=== PATIENT | female | born 1970 | race Caucasian/White ===

== ENCOUNTER 2023-05-28 11:42 | Outpatient (CLI) | payer OTHER, SELFPAY ==
--- NOTE | ~2023-05-28 | XR_ITS ---
EXAMINATION: XR abdomen/kub 1V DATE: 05/28/2023 12:00 INDICATION: Kidney stones. TECHNIQUE: A supine view of the abdomen on 2 radiographs was obtained. COMPARISON: None. FINDINGS: There are no dilated loops of bowel. There are surgical clips in right abdomen. Small calci fications in left pelvis are likely phleboliths. IMPRESSION: 1. No visible urolithiasis. Reviewed, dictated and finalized at location A. IMPRESSION: 1. No visible urolithiasis.
== END 2023-05-28 11:43 | disposition home or self-care (01) ==
LOC: ANHIMG 11:49
PROVIDERS: PCP Family Medicine; Visit Provider Nurse Practitioner
DX: N20.0 Calculus of kidney (principal)
CPT/HCPCS: 74018

== ENCOUNTER 2025-04-25 09:54 | Outpatient (CLI) | payer OTHER, SELFPAY ==
--- NOTE | ~2025-04-25 | XR_ITS ---
XR abdomen/kub 1V 04/25/2025 10:20 Indication: Kidney stones Procedure: KUB Comparison: No prior studies for comparison. Findings: Bowel gas pattern nonobstructive. Moderate colonic fecal loading. There are clustered calci fications right upper abdomen which are nonspecific, possibly costal cartilage calcification. There a re pelvic phleboliths. No definite renal stones. No stones are identified in the expected course of t he ureters. Impression: 1: No acute abdominal abnormality. Reviewed, dictated and finalized at location A. Impression: 1: No acute abdominal abnormality.
--- OUTSIDE RECORDS SUMMARY | 2025-04-25 10:17 | XMS_ITS | Clinical Summary ---
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 Name Role Phone Unavailable Primary Care Provider Unavailabl e Social History Tobacco Use Types Packs/Day Years Used Date Smoking Tobacco: Never Assessed Comments Unknown Sex and Gender Information Value Date Recorded Sex Assigned at Not on file Legal Sex Female 8:41 PM [employer] Gender Identity Not on file Sexual Orientation Not on file Plan of Treatment Health Maintenance Due Date Last Done Comments Hepatitis C Virus (HCV) Screening 1971 Hepatitis B Immunization (1 of 3 - 19+ 3-dose series) 1990 Pap Smear 02/08/1992 Cervical Cancer Screening (CCS) 2001 HPV/Cotest 2001 Colonoscopy 02/08/2016 Colorectal Cancer Screening 02/08/2016 Cologuard 2021 Immunochemical Fecal Occult Blood 2021 Mammogram 2021 Pneumococcal Immunization (5 0+ years) (1 of 1 - PCV) 2021 Zoster Immunization (1 of 2) 2021 Influenza Immunization (#1) 2024 SARS-COV-2 Immunization ( season) 2024 Respiratory Syncytial Virus (RSV) Immunization (Adult) (1 - 1-dose 75+ series) 2046 DTaP/Tdap/Td Immunization Discontinued 10/29/2018 TdaP Immunization Completed 10/29/2018 Meningococcal Immunization (ACWY) Aged Out No longer eligible based on patient's age to complete this topic Pneumococcal Immunization Combined Aged Out No longer eligible based on patient's age to complete this topic Rotavirus Immunization Aged Out No lo nger eligible based on patient's age to complete this topic
--- OUTSIDE RECORDS SUMMARY | 2025-04-25 10:18 | XMS_ITS | Continuity of Care Document ---
Author Name [facility] Organization [facility] Care Team Providers Care Occupational Therapy Director Name Role Phone [facility] Unavailable Unavailable Problems Combined list of problems from Department of Defense and Veterans Affairs facilities. It does not include entries that were removed or entered in error. 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 DoD REFRACTIVE ERROR - HYPERMETROPIA Active Condition DoD PRESBYOPIA Active Condition DoD visit for: single organ system exam eyes Inactive Condition DoD eye symptoms Inactive Condition DoD ROUTINE GYNECOLOGICAL EXAM Inactive Condition DoD visit for: administrative purpose Inactive Condition DoD diffuse joint pains (arthralgias) Inactive Condition DoD UTERINE LEIOMYOMA INTRALIGAMENTOUS Active Condition DoD UPPER RESPIRATORY INFECTION Inactive Condition DoD STRESS INCONTINENCE Inactive Condition D oD OTITIS MEDIA LEFT EAR Inactive Condition DoD MIGRAINE HEADACHE Active Condition DoD ROUTINE GYNECOLOGICAL EXAM WITH CERVICAL PAP SMEAR Inactive Condition DoD MENORRHAGIA Active Condition DoD HEADACHE SYNDROMES Active Condition DoD ALLERGIC RHINITIS - ANIMALS Active Condition DoD Patient Education - Proper Use Of Medications Active Condition DoD cough Active Condition DoD itching (pruritus) Active Condition DoD allergy to molds Active Condition DoD ALLERGIC RHINITIS - POLLEN Active Condition DoD ADVERSE FOOD REACTION (NOT ANAPHYLACTIC) Active Condition DoD APHTHOUS ULCER STOMATITIS HERPETIFORMIS Active Condition DoD CANDIDIASIS ORAL THRUSH Inactive Condition DoD UTERINE NEOPLASM, BENIGN - LEIOMYOMA Active Condition DoD visit for: screening exam Inactive Condition DoD DYSMENORRHEA Active Condition DoD lethargy Active Condition DoD TENSION-TYPE HEADACHE Active Condition DoD ACTINIC KERATOSIS Active Condition ac tinic keratotic lesion in inner forearm of left Did cryotherapy 2 passes x 20 seconds - pt tolerated well explained that lesion would become erythematous and then peel DoD ANXIETY DISORDER NOS Active Condition Controlled on present dose of once a day at night. Pt will call if once a day is no longer effective. DoD ALLERGIC RHINITIS Active Condition Pt also doing a lot of sneezing. Children's Sudafed prn. DoD HYPERHIDROSIS Active Condition Contro lled w/ 2 times a week use. DoD Hyperhidrosis Active Condition Improv ed w/ Drysol. DoD ADVERSE EFFECT OF DRUG THERAPY Inactive Condition Effexor-XR. DoD visit for: screening exam malignant neoplasm breast Inactive Condition DoD visit for: screening exam for malignant neoplasm cervix Inactive Condition DoD Serum Total Cholesterol Was Elevated Active Condition DoD ESOPHAGEAL REFLUX Active Condition Di et controlled. DoD joint stiffness finger(s) Active Condition R/O RA or other abnormalities. Exam of hands was wnl. DoD LUMBAGO Active Condition Probably muscular. Pt to con't stretching exercises. Motrin &/or Tylenol. DoD Preventive Medicine New Patient Evaluation Adult 18-39 Inactive Condition Exam wnl. Occ h/as are possibly sinus related. No h/a now. Recommended routine eye exam since it has been almost 2 yrs since pt's last eye exam. No med record available for review. DoD Medications Combined list of outpatient medications from Department of Defense and Veterans Affairs facilities.Medications provided include 1) outpatient medications from the last 15 months, and 2) patient-reported medications. Medication Details Route Status Patient Instructions Prescription Expires Prescription Number Last Dispense Date Ordering Provider Order Date Order Qty Source ESTRADIOL (ESTRADIOL) , .0375MG/24, PATCH TDSW, TRANSDERM, MYLAN, [address] Cance[place] d [id number] : 2023 0 Pharmac y Data Transac tion Service Facilit y Allergies, Adverse Reactions, Alerts Combined list of allergies from Department of Defense and Veterans Affairs facilities. It does not include entries that were removed or entered in error. Substance Category Reaction Severity Reaction type Status Date Reported Comments Source VICODIN Drug allergy (disorder) active 04/22/2018 [facility] Immunizations Combined list of available immunizations from the Department of Defense and Veterans Affairs facilities. Immunization Series Date Given Administered By Site Reaction Lot Number CVX Code Drug Switch Crew Supervisor Status Comments Source tetanus toxoid, reduced diphtheria toxoid, and acellular pertu is vaccine, adsorbed 1 2013 Unknown, Provider [id number] Sanofi Pasteur (PMC) complet ed tetanus toxoid, reduced diphtheri a toxoid, and acellular pertussis vaccine, adsorbed DoD typhoid Vi capsular polysaccharid e vaccine 0 2001 [id number] [facility] ([facility]) complet ed typhoid Vi capsular polysacch aride vaccine DoD tuberculin skin test; purified protein derivative solution, intradermal 1 2001 Unknown, Provider [id number] [facility] Pasteur ([facility]) complet ed tuberculi n skin test; purified protein derivativ e solution, intraderm al DoD influenza virus vaccine, whole virus 0 2001 [id number] 16 [facility] ([facility]) complet ed influenza virus vaccine, whole virus DoD tuberculin skin test; purified protein derivative solution, intradermal 1 2000 Unknown, Provider [id number] 96 [facility] ([facility]) complet ed tuberculi n skin test; purified protein derivativ e solution, intraderm al DoD influenza virus vaccine, whole virus 0 2000 [id number] () complet ed influenza virus vaccine, whole virus DoD yellow fever vaccine 0 1999 [id number] [facility] complet ed yellow fever vaccine DoD influenza virus vaccine, whole virus 0 1999 [id number] 16 [facility] ([facility]) complet ed influenza virus vaccine, whole virus DoD tuberculin skin test; purified protein derivative solution, intradermal 1 1999 Unknown, Provider 96 () complet ed tuberculi n skin test; purified protein derivativ e solution, intraderm al DoD typhoid vaccine, parenteral, other than acetone-kille d, dried 0 1999 [id number] [facility] ([facility]) complet ed typhoid vaccine, parentera l, other than acetone-k illed, dried DoD hepatitis B vaccine, adult dosage 3 1999 [id number] 43 Merck (MSD) complet ed hepatitis B vaccine, adult dosage DoD hepatitis B vaccine, adult dosage 2 1999 [id number] 43 Merck (MSD) complet ed hepatitis B vaccine, adult dosage DoD influenza virus vaccine, whole virus 0 1998 [id number] 16 [place] (CON) complet ed influenza virus vaccine, whole virus DoD hepatitis A vaccine, adult dosage [id number] [place] [address] ([facility]) complet ed hepatitis A vaccine, adult dosage DoD trivalent poliovirus vaccine, live, oral 0 1997 [id number] 02 Ledbertha (LED) comple t ed trivalent polioviru s vaccine, live, oral DoD measles, mumps and rubella virus vaccine 0 1997 [id number] 03 Merck (MSD) complet ed measles, mumps and rubella virus vaccine DoD hepatitis A vaccine, adult dosage 1 1997 [id number] 52 Merck (MSD) complet ed hepatitis A vaccine, adult dosage DoD tetanus and diphtheria toxoids, adsorbed, preservative free, for adult use (2 Lf of tetanus toxoid and 2 Lf of diphtheria toxoid) 0 1997 [id number] 09 [place] (CON) complet ed tetanus and diphtheri a toxoids, adsorbed, preservat morris free, for adult use (2 Lf of tetanus toxoid and 2 Lf of diphtheri a toxoid) DoD influenza virus vaccine, whole virus 0 [id number] 16 [place] (WAL) complet ed influenza virus vaccine, whole virus DoD meningococcal polysaccharid e vaccine (MPSV4) 0 [id number] 32 [place] (CON) complet ed meningoco ccal polysacch aride vaccine (MPSV4) DoD tuberculin skin test; purified protein derivative solution, intradermal 1 1997 Unknown, Provider 96 () complet ed tuberculi n skin test; purified protein derivativ e solution, intraderm al DoD Encounters Combined list of: 1) Encounters from Department of Veterans Affairs facilities going backup to the last 18 months, not all VA inpatient encounters are included; 2) Encounters from the Department of Defense facilities going backup to 280 months. Location Location Details Encounter Type Encounter Number Reason For Visit Attending Provider ADM Date DC Date Status Disposition Source [facility]) OUTPATIENT [id number] ALEYDA Waller W 09/05 Released w/o Limitations [facility]) [facility]) TELE CONSULT [id number] ALEYDA Sen W 10/05 [facility]) [facility]) OUTPATIENT [id number] ALEYDA BARONE W 10/23 Released w/o Limitations [facility] [place] [facility] [place] [facility]) OUTPATIENT [id number] EXCESSI VE SWEATIN G ALEYDA MERRITT W 02/07 Released w/o Limitations [facility] [place] [facility]) [facility] [place] [facility] OUTPATIENT [id number] med ALEYDA Del Cid W 02/26 Released w/o Limitations [facility] [place] [facility]) [facility] [place] [facility]) OUTPATIENT [id number] f/u med ALEYDA Del Cid W 03/24 Released w/o Limitations [facility] [place] [facility] [place] [facility] OUTPATIENT [id number] f/u test results ALEYDA MERRITT W 04/07 Released w/o Limitations [facility] [place] [facility] [place] [facility] OUTPATIENT [id number] f/u on meds ALEYDA MERRITT W 05/06 Released w/o Limitations [facility] [place] [facility]) [facility] [place] [facility]) OUTPATIENT [id number] r/o sinus infecti on ALEYDA MERRITT W 07/31 Released w/o Limitations [facility] [place] [facility]) [facility] [place] [facility] OUTPATIENT [id number] PT CONCERN ED ABOUT SKY LEPE 03/13 Released w/o Limitations [facility] [place] [facility]) [facility] [place] [facility] OUTPATIENT [id number] tick bite GALEN WHITTAKER 05/05 Released w/o Limitations [facility] [employer] [facility] [place] DIRECT TO MTF FROM OTHER THAN ER OR [facility] [id number] GLENN SOLIS 12/07 DISCHARGED HOME [facility] [place] [facility] [place] [facility] OUTPATIENT [id number] hx of uterine fibriod s and request testing for allergi es ALEYDA MERRITT W 05/15 Released w/o Limitations [facility]([employer] [facility]) [facility] [facility]) OUTPATIENT [id number] pap ALEYDA MERRITT W 06/05 Released w/o Limitations [facility]([employer] [facility]) [facility] [facility]) TELE CONSULT [id number] Pelvic u/s result ALEYDA MERRITT W 06/28 [facility]([employer] [facility]) [facility]) OUTPATIENT [id number] visit for: screeni ng exam for allergi es and food sensiti vities SAUL SCHNEIDERHAMMAD 07/03 Released w/o Limitations [facility]) [facility]) OUTPATIENT [id number] visit for :screen ing exam for allerig ies and food sensiti vities SAUL SCHNEIDERHAMMAD 07/09 Released w/o Limitations [facility]) [facility] Managemen t [facility]) OUTPATIENT [id number] med YANG Turner 07/09 Released w/o Limitations [facility]a lt Managem ent [facility]) [facility]) OUTPATIENT [id number] f/u SAUL SCHNEIDERHAMMAD 07/26 Released w/o Limitations [facility]) [facility]([employer]ant [employer] [place]) OUTPATIENT [id number] UTERINE NEOPLAS M, BENIGN- LEIOMYO MA, dysmeno rrhea POONAM MENDEZ W 02/11 Released w/o Limitations [facility]([employer] [place]) [facility]) OUTPATIENT [id number] PAP SMEAR; 1971 ALEYDA MERRITT W 09/26 Released w/o Limitations [facility]([employer] to[facility]) [facility]) OUTPATIENT [id number] SINUS/E AR INFECTI ON ALEYDA MERRITT W 02/18 Released w/o Limitations [facility]([employer] [facility]) [facility]([place] [facility]) OUTPATIENT [id number] F/U Ear ALEYDA MERRITT W 03/12 Released w/o Limitations [facility]([employer] [facility]) [facility]([place] [facility]) OUTPATIENT [id number] COUGH ALEYDA MERRITT W 03/24 Sick at Home/Quarter s [facility]([employer] [facility]) [facility]) OUTPATIENT [id number] new patient YANG MCCULLOUGH 10/27 Released w/o Limitations [facility]) [facility]([employer] [place]) TELE CONSULT [id number] Appt RITA DAVILA L 10/27 [facility]([employer] [place]) [facility]) OUTPATIENT [id number] F/U FOR BLOOD WORK/LA ST SEEN [id number] YANG MCCULLOUGH G 12/01 Released w/o Limitations [facility]) [facility]([employer] [place]) OUTPATIENT [id number] UTERINE LEIOMYO [facility] 12/[facility] Released w/o Limitations [facility]([employer] [place]) [facility]([employer] [place]) TELE CONSULT [id number] lab RITA DAVILA L 12/03 [facility]([employer] [place]) [facility]) OUTPATIENT [id number] SINUS INFECTI ON JOHNNY FOSTER P 01/16 Released w/o Limitations [facility]) [facility](Optomet ry [place]) OUTPATIENT [id number] eye symptom s GLENN JUDGE F 01/25 Released w/o Limitations [facility](Opt ometry [place]) [facility]([employer] [place]) OUTPATIENT [id number] f/u NIKO ALFIE Nash 03/29 Released w/o Limitations [facility]([employer] [place]) [facility]) OUTPATIENT [id number] RASH ON RIGHT EAR, AND AND RIGHT SHOULDE R PAIN YANG MCCULLOUGH 05/27 Released w/o Limitations [facility]) [facility](Phy Ther [facility]) OUTPATIENT [id number] joint pain, localiz ed in the right shoulde r GALE MASON 06/08 Released w/o Limitations [facility](Phy Ther [facility]) [facility]([employer] [place]) TELE CONSULT [id number] CA 125 level elevate d RITA DAVILA 06/21 [facility]([employer] [place]) [facility]([employer] [place]) OUTPATIENT [id number] f/u ca 125 elevate d ALFIE POPE Ricky 06/21 Released w/o Limitations [facility]([employer] [place]) [facility]([employer] [place]) OUTPATIENT [id number] postop Jun lap ALFIE POPE 07/30 Released w/o Limitations [facility]([employer] [place]) [facility]) OUTPATIENT [id number] UPPER ABDOMIN AL DISCOMF ORT X 3 DAYS YANG MCCULLOUGH 10/17 Released w/o Limitations [facility]) [facility]) TELE CONSULT [id number] YANG MCCULLOUGH 10/18 [facility]) [facility]) TELE CONSULT [id number] YANG MCCULLOUGH 11/01 [facility] Ronny ANNE ([facility] [facility] Sreedhar Chang[place] TELE CONSULT [id number] Notes Entered by: ANA COLLADO 20 Jan 2014 1128 ------- ------- ------- ------- -- Lab request before Jan appt Mary [phone] AYSHA LUGO 01/[address] [place] [address] Ronny ANNE [facility] [facility] [place] [address] [place] [address] Ronny PRINCEHailey [facility]Sco tt [facility] [place] [facility] [place]) OUTPATIENT [id number] Anemia/ mole eval AYSHA LUGO 01/26 Released w/o Limitations [address] [place] [address] Ronny PRINCEHailey [facility]S cott [facility] [place] [address] [place] [address] Ronny PRINCEHailey [facility]Sco tt [facility] [place] [facility] [place]) TELE CONSULT [id number] Notes Entered by: DONNA RANGEL 31 Jan 2014 0759 ------- ------- ------- ------- -- Heavy bleedin g and clottin g on period/ Mary / DIOGENES WHITNEY 01/[address] [place] [address] Ronny PRINCEHailey [facility]S [place] [facility] [place] [address] [place] [address] Ronny PRINCEHailey [facility]Sco tt [facility] [place]) TELE CONSULT [id number] Notes Entered by: Marcelle ROSENBERG 31 Jan 2014 1357 ------- ------- ------- ------- -- ER FU/Edwin kwok/[phone] TENZIN TIRADO 01/[address] [place] [address] Ronny PRINCEHailey ([facility] [facility] [place]) [address] [place] [address] Ronny PRINCEHailey [facility]Sco tt [facility] [place]) OUTPATIENT [id number] post st E er visit, heavy vag bleedin g/ abd MARTY lEam 02/01 Released w/o Limitations [address] [place] [address] Ronny PRINCEHailey [facility])(S cott [facility] F[place] Res [place]) [address] [place] [address] Ronny PRINCEHailey [facility])(Sco [facility]) TELE CONSULT [id number] Notes Entered by: ANN MARIO 03 Feb 2014 1142 ------- ------- ------- ------- -- Hero claudio to the ER/Edwin kwok/[phone] MARTY LLOYD 02/[address] [place] [address] Group Ronny ANNE ([facility]S cott [facility]) [facility]([employer] [facility]) OUTPATIENT [id number] Notes Entered by: ANKUSH WILCOX 03 Feb 2014 1838 ------- ------- ------- ------- -- ED visit ANKUSH DENNY 02/03 Released w/o Limitations [facility]) [facility]) OUTPATIENT [id number] Notes Entered by: DAMON CORTES 2014 1107 ------- ------- ------- ------- -- f/u ANKUSH DENNY 02/07 Released w/o Limitations [facility]) [facility]([employer] [facility]) OUTPATIENT [id number] Notes Entered by: DAMON CORTES 08 Feb 2014 1033 ------- ------- ------- ------- -- Pre-op ANKUSH DENNY 02/08 Released w/o Limitations [facility]) [address] [place] [address] Group Ronny ANNE ([facility])(Plant Science Professor ecology) OUTPATIENT [id number] ABNORMA L VAGINAL BLEKIRKIN URIEL AZUL 02/16 Released w/o Limitations [address] [place] [address] Group Ronny ANNE ([facility])(Ricky hatch gy) [address] [place] [address] Ronny ANNE ([facility])(Plant Science Professor ecology) OUTPATIENT [id number] ANNUAL WWE - [id number] URIEL HOOD 02/20 Released w/o Limitations [address] [place] [address])([employer]icky hatch gy) [facility]) TELE CONSULT [id number] Notes Entered by: ANKUSH WILCOX 24 Feb 2014 1850 ------- ------- ------- ------- -- Benign results [place] ANKUSH DENNY 02/24 [facility]) [address] [place] [address])(Plant Science Professor ecology) TELE CONSULT [id number] Notes Entered by: MARCOS JIMÉNEZ 03 Mar 2014 0758 ------- ------- ------- ------- -- [facility] [place] [address])(Ricky hatch gy) [address] [place] [address])(Ob/ Plant Science Professor) TELE CONSULT [id number] Notes Entered by: Natali ROSENBERG 20 Jun 2014 0635 ------- ------- ------- ------- -- SX IUD came out in a lot of pain VIK BELL 06/[address] [place] [address])(O b/Plant Science Professor) [address] [place] [address])(Plant Science Professor ecology) OUTPATIENT [id number] IUD came out RADHA REID 06/26 Released w/o Limitations [address] [place] [address])(Ricky hatch gy) [address] [place] [address])(Plant Science Professor ecology) TELE CONSULT [id number] Notes Entered by: JESSICA REID 27 Jun 2014 0815 ------- ------- ------- ------- -- result ZAINAB SLADE 06/[address] [place] [address])( ynecohermila gy) [address] [place] [address])(Plant Science Professor ecology) TELE CONSULT [id number] Notes Entered by: JOE RAMOS 27 Jun 2014 1025 ------- ------- ------- ------- -- Medicat ion questio ns JOE RAMOS 06/[address] [place] [address])( ynetxlo gy) [address] [place] [address])(Plant Science Professor ecology) TELE CONSULT [id number] Notes Entered by: JESSICA REID 29 Jun 2014 1739 ------- ------- ------- ------- -- results ZAINAB SLADE 06/[address] [place] [address])( yeufemiatxhermila gy) [address] [place] [address])(Plant Science Professor ecology) OUTPATIENT [id number] discuss surgica l options QUE RIOS 07/20 Released w/o Limitations [address] [place] [address])(G ynemount nebo gy) [address] [place] [address])(Plant Science Professor ecology) TELE CONSULT [id number] Notes Entered by: NIKKO SLADE 01 Aug 2014 1559 ------- ------- ------- ------- -- Surgery date ZAINAB SLADE 08/[address] [place] [address])(G ynecolo gy) [address] [place] [address])(Plant Science Professor ecology) OUTPATIENT [id number] Notes Entered by: MARCOS JIMÉNEZ 02 Aug 2014 1100 ------- ------- ------- ------- -- pre op - [phone] MANJU GARCIAS 08/02 Released w/o Limitations [address] [place] [address])(G ynecolo gy) [address] [place] [address] Ronny [facility])(Plant Science Professor ecology) TELE CONSULT [id number] Notes Entered by: NIKKO SLADE 21 Aug 2014 0902 ------- ------- ------- ------- -- Dot oconnor surgery ZAINAB SLADE 08/[address] [place] [address] Ronny [facility] ([facility])(G ynecolo gy) [address] [place] [address] Ronny [facility])(Ob/ Plant Science Professor) TELE CONSULT [id number] Notes Entered by: BAM BELL 21 Aug 2014 1448 ------- ------- ------- ------- -- Remindricky r for surgery 1Oct14 MANJU GARCIAS 08/[address] [place] [address] Ronny [facility] ([facility])(O b/Plant Science Professor) [address] [place] [address] Ronny [facility])(Ob/ Plant Science Professor) TELE CONSULT [id number] Notes Entered by: BAM BELL 29 Aug 2014 0947 ------- ------- ------- ------- -- Reminde r for surgery [id number] VIK BELL 08/[address] [place] [address] Ronny [facility] ([facility])(O b/Plant Science Professor) [address] [place] [address] Ronny [facility] ([facility])(Plant Science Professor ecology) TELE CONSULT [id number] Notes Entered by: HERMELINDA MAYEN 01 Sep 2014 0725 ------- ------- ------- ------- -- Network Results -AOC PLANS INTELLIGENCE OFFICER 08/30/14 MANJU GARCIAS 09/[address] [place] [address] Ronny [facility])(G ynecolo gy) [address] [place] [address] Ronny [facility])([facility]) TELE CONSULT [id number] Notes Entered by: MARIANNE SORIA 05 Sep 2014 1042 ------- ------- ------- ------- -- Network Results -GYNECO LOGY/OB STEGINA S 08/30/14 PACO LIZARRAGA 09/[address] [place] [address] Ronny ANNE [facility])(S cott [facility] FAMRES Tm Blue) [address] [place] [address] Ronny Hailey [facility])(Plant Science Professor ecology) OUTPATIENT [id number] post op MANJU GARCIAS 10/04 Released w/o Limitations [address] [place] [address] Ronny Hailey [facility])(G ynecolo gy) [address] [place] [address] Ronny ANNE [facility])(Sco tt [facility] Fam Res Tm Green) OUTPATIENT [id number] only out of breath when going up stair or bending over x9 months [id number] MARTY LLOYD 11/14 Released w/o Limitations [address] [place] [address] Ronny [facility])(S cott [facility] Fam Res Tm Green) [address] [place] [address] Ronny ANNE [facility])(Sco tt [facility] FAMRES Tm Blue) TELE CONSULT [id number] Notes Entered by: THA ABREU 27 Nov 2014 1530 ------- ------- ------- ------- -- Network Results - CARDIOL OGY- 11/24/14 PACO LIZARRAGA 11/[address] [place] [address] Ronny MORRISONHailey [facility])(S cott [facility] FAMRES Tm Blue) [address] [place] [address] Ronny OMID [facility])(Sco tt OF FAMRES Tm Blue) TELE CONSULT [id number] Notes Entered by: MARIANNE SORIA 07 Dec 2014 0844 ------- ------- ------- ------- -- Network Results -CARDIO LOGY 12/04/14 PACO LIZARRAGA 12/[address] [place] [address] Ronny PRINCEHailey [facility])(S cott [facility] FAMRES Tm Blue) [address] [place] [address] Ronny PRINCEHailey [facility])(Sco tt [facility] FAMRES Tm Blue) TELE CONSULT [id number] Notes Entered by: MARIANNE SORIA 07 Dec 2014 1141 ------- ------- ------- ------- -- Network Results -CARDIO LOGY 12/06/14 PAOC LIZARRAGA 12/[address] [place] [address] Ronny ANNE [facility]S cott [facility] FAMRES Tm Blue) [address] [place] [address] Ronny ANNE [facility])([facility] Blue) TELE CONSULT [id number] Notes Entered by: THA ABREU 15 Dec 2014 1451 ------- ------- ------- ------- -- Network Results - CARDIOL OGY- 12/15/14 PACO LIZARRAGA 12/[address] [place] [address] Ronny ANNE [facility])(S cott [facility] FAMRES Tm Blue) [address] [place] [address] Ronny Hailey [facility])(Sco tt [facility] Fam Res Tm Green) TELE CONSULT [id number] Notes Entered by: Marcelle ROSENBERG 26 Jun 2015 1018 ------- ------- ------- ------- -- Mental health referra stiles/Bernard garcia/75 [phone] CON BALLESTEROS 06/[address] [place] [address] Ronyn ANNE [facility]S cott [facility] Fam Res Tm Green) [address] [place] [address] Ronny PRINCEHailey [facility])(Sco tt [facility] Fam Res Tm Green) OUTPATIENT [id number] Stress due to brother passing away/HARLEY Mclean 06/27 Released w/o Limitations [address] [place] [address] Ronny PRINCEHailey [facility])(S cott [facility] Fam Res Tm Green) [address] [place] [address] Ronny PRINCEHailey [facility])(Opt ometry) OUTPATIENT [id number] annual exam RICH RAYMOND 02/25 Released w/o Limitations [address] [place] [address] Ronny PRINCEHailey [facility])(O ptometr y) [address] [place] [address] Ronny PRINCEHailey [facility])(Sco tt [facility] Fam Res Tm Red) OUTPATIENT [id number] Bad greenis h yellow nasal congest ion and sneezin g [id number] SABINA NERI 03/25 Released w/o Limitations [address] [place] [address] Ronny PRINCEB [facility])(S cott [facility] Fam Res Tm Red) [address] [place] [address] Ronny [facility])(Plant Science Professor ecology) OUTPATIENT [id number] vaginal irritat ion/pre ssure - [phone] ZOYA EVANS 09/25 Released w/o Limitations [address] [place] [address] Ronny [facility])(G ynecolo gy) [address] [place] [address] Ronny [facility])(Plant Science Professor ecology) TELE CONSULT [id number] Notes Entered by: ANAHY PEREZ 30 Sep 2016 0740 ------- ------- ------- ------- -- results RHINA FREEDMAN 09/[address] [place] [address] Ronny [facility])(G ynecolo gy) [address] [place] [address] Ronny [facility])([facility]) TELE CONSULT [id number] Notes Entered by: CAT ELLER 01 Oct 2016 1111 ------- ------- ------- ------- -- Patient called due to high cholest wayne level from lab work. CAT ELLER 10/[address] [place] [address] Ronny [facility])(N utritio stephanie Medicin e) [address] [place] [address] Ronny [facility])(Plant Science Professor ecology) TELE CONSULT [id number] Notes Entered by: ANAHY PEREZ 07 Oct 2016 1434 ------- ------- ------- ------- -- results RHINA FREEDMAN 10/[address] [place] [address] Ronny [facility])(G ynecolo gy) [address] [place] [address] Ronny [facility])([facility] Fam Res Tm Green) TELE CONSULT [id number] Notes Entered by: DOROTHY LOZANO 12 Nov 2016 1326 ------- ------- ------- ------- -- Shay stiles Therapy Form/ Antoni yeager/ PACO Morel 11/[address] [place] [address] Ronny [facility])(S cott [facility] Fam Res Tm Green) [address] [place] [address] Ronny [facility])(Sco tt [facility] Green) TELE CONSULT [id number] Notes Entered by: AYSHA KOEHLER 15 Jan 2017 0720 ------- ------- ------- ------- -- Network results Physicbrandi l Therapy 7 PACO SILVA 01/[address] [place] [address])(S [facility] Green) [address] [place] [address])(Sco tt [facility] Green) TELE CONSULT [id number] Notes Entered by: FABIOLA BOND 21 Jan 2017 0751 ------- ------- ------- ------- -- Network results Shay l 6 PACO LORA 01/[address] [place] [address])([facility] Green) [address] [place] [address])(Med ical In/Out Processin g) TELE CONSULT [id number] Notes Entered by: SHRUTHI MELO 30 Mar 2017 1355 ------- ------- ------- ------- -- Mammogr am Screeni RAY Hickey 03/[address] [place] [address])(M edical In/Out Process ing) [address] [place] [address])(Sco tt [facility]) TELE CONSULT [id number] Notes Entered by: PACHECO OJEDA 09 Jul 2017 1320 ------- ------- ------- ------- -- Arnold Figueroa /Dread morse/757 .927.40 60/YANG Mujica 07/[address] [place] [address] Ronny [facility])(S cott [facility] Green) [address] [place] [address])(Sco tt [facility] Green) OUTPATIENT [id number] Eval of multipl e concern s/FU HOOD,serazackary lder/leon nash pops&ch leydi moles 40minsl ot PACO LIZARRAGA 07/20 Released w/o Limitations [address] [place] [address] Ronny ANNE [facility])(S cott [facility] Fam Res Tm Green) [address] [place] [address] Ronny [facility] Blue) TELE CONSULT [id number] Notes Entered by: OSCAR DAVIS 24 Jul 2017 1232 ------- ------- ------- ------- -- Lab Results APCO LIZARRAGA 07/[address] [place] [address] Ronny [facility])(S [facility] FAMRES Tm Blue) [address] [place] [address] Ronny [facility])(Sco tt [facility] Fam Res Tm Green) OUTPATIENT [id number] Notes Entered by: NIMA NORRIS 20 Aug 2017 1342 ------- ------- ------- ------- -- walkin for F/U for migrain PACO Apple 08/20 Released w/o Limitations [address] [place] [address] Ronny [facility]S [facility] Fam Res Tm Green) [address] [place] [address] Ronny [facility])(Sco tt [facility] FAMRES Tm Blue) TELE CONSULT [id number] Notes Entered by: OSCAR DAVIS 24 Aug 2017 1550 ------- ------- ------- ------- -- Nausea PACO LIZARRAGA 08/[address] [place] [address] Ronny [facility])(S [facility] FAMRES Tm Blue) [address] [place] [address] Ronny [facility])(Sco tt [facility] Res Tm Green) OUTPATIENT [id number] Notes Entered by: SARY EDMONDS 18 Sep 2017 1243 ------- ------- ------- ------- -- f/u headach es PACO LIZARRAGA 09/18 Released w/o Limitations [address] [place] [address] Group Ronny MORRISONB ([facility]S cott [facility] Fam Res Tm Green) [address] [place] [address] Ronny MORRISONB [facility])(Sco tt [facility] Blue) TELE CONSULT [id number] Notes Entered by: OSCAR DAVIS 12 Oct 2017 1025 ------- ------- ------- ------- -- Change in dose PACO LIZARRAGA 10/[address] [place] [address] Ronny MORRISONB [facility])(S cott [facility] FAMRES Tm Blue) [address] [place] [address] Ronny MORRISONB [facility])(Sco tt [facility] Fam Res Tm Green) OUTPATIENT [id number] Notes Entered by: DOROTHY LOZANO 23 Oct 2017 1133 ------- ------- ------- ------- -- Medicat ion F/u PACO LIZARRAGA 10/23 Released w/o Limitations [address] [place] [address] Ronny ANNE [facility])(S cott [facility] Res Tm Green) [address] [place] [address] Ronny MORRISONB [facility])(Sco tt [facility] FAMRES Tm Blue) OUTPATIENT [id number] Notes Entered by: FEDERICO KAT 18 Nov 2017 1445 ------- ------- ------- ------- -- f/u meds PACO LIZARRAGA 11/18 Released w/o Limitations [address] [place] [address] Ronny [facility]OR[facility]ISONB ([facility]) [address] [place] [address] Ronny MORRISONB [facility])(Min or Procedure Clinic) OUTPATIENT [id number] OMT initial appoint ment/ce SHAWANDA Croft 12/23 Released w/o Limitations [address] [place] [address] Ronny [facility]ISON[facility])(M inor Procedu re Clinic) [address] [place] [address] [employer] [employer] [facility])(Min or Procedure Clinic) OUTPATIENT [id number] OMT F/U thoraci c and upper extremi ty dyfunct ion. 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 4060/cl CLAUDIA Lewis 04/[address] [place] [address] Ronny [facility])(G ynecolo gy) [address] [place] [address] Ronny [facility])(Plant Science Professor ecology) OUTPATIENT [id number] vag bleedin g [id number] RADHA REID 04/22 Released w/o Limitations [address] [place] [address] Ronny [facility])(G ynecolo gy) [address] [place] [address] Ronny [facility])(Plant Science Professor ecology) TELE CONSULT [id number] Notes Entered by: JESSICA REID 23 Apr 2018 0716 ------- ------- ------- ------- -- results RADHA REID 04/[address] [place] [address] Ronny [facility])(G ynecolo gy) [address] [place] [address] Ronny [facility])(Plant Science Professor ecology) TELE CONSULT [id number] Notes Entered by: JESSICA REID 05 May 2018 1543 ------- ------- ------- ------- -- results ANISA CORONEL 05/05 Referred for Appointment [address] [place] [address] Ronny [facility])(G ynecolo gy) [address] [place] [address] Ronny [facility])(Plant Science Professor ecology) OUTPATIENT [id number] [facility] [id number] RADHA REID 05/19 Released w/o Limitations [address] [place] [address] Ronny [facility])(G ynecolo gy) [address] [place] [address] Ronny [facility])([facility] Sreedhar Hermosillo) TELE CONSULT [id number] Notes Entered by: FEDERICO KAT 31 May 2018 1518 ------- ------- ------- ------- -- Refill / [id number]/ PACO GASCA 05/[address] [place] [address] Group Ronny MORRISONB [facility])(S [facility] FAMRES Tm Blue) [address] [place] [address] Ronny MORRISONB [facility])(Plant Science Professor ecology) TELE CONSULT [id number] Notes Entered by: JESSICA REID 31 May 2018 1742 ------- ------- ------- ------- -- results ZAINAB SLADE 05/[address] [place] [address] Group Ronny MORRISONB [facility])(Ricky hatch gy) [address] [place] [address] Group Ronny MORRISONB [facility])(Sco [facility] Res Tm Green) TELE CONSULT [id number] Notes Entered by: SERA STUART 19 Aug 2018 0825 ------- ------- ------- ------- -- Bridge Gunner - Antoni ki - - PACO Kendall 08/[address] [place] [address] Group Ronny MORRISONB [facility])([facility] Res Green) [address] [place] [address] Ronny MORRISONB [facility])(Plant Science Professor ecology) OUTPATIENT [id number] 7 annual wwe - [phone] DERIAN HAMMER 05/18 Released w/o Limitations [address] [place] [address] Group Ronny MORRISONB [facility])(Ricky hatch gy) [address] [place] [address] Ronny MORRISONB [facility])(Plant Science Professor ecology) TELE CONSULT [id number] Notes Entered by: Aimee HAMMER 19 May 2019 1723 ------- ------- ------- ------- -- Labs ZAINAB SLADE 05/19 Referred for Appointment [address] [place] [address] Group Ronny MORRISONB [facility])(G holden gy) [address] [place] [address] Ronny MORRISONB [facility])(Plant Science Professor ecology) TELE CONSULT [id number] Notes Entered by: Aimee HAMMER 23 May 2019 1636 ------- ------- ------- ------- -- Lab ZAINAB SLADE 05/23 Referred for Appointment [employer] ([facility])(G ynecolo gy) [employer] ([facility])(Plant Science Professor ecology) TELE CONSULT [id number] Notes Entered by: Aimee HAMMER 09 Jun 2019 0805 ------- ------- ------- ------- -- Test JOE RAMOS 06/09 Referred for Appointment [employer] [facility])(G ynecolo gy) [facility] [employer] ([facility])(Plant Science Professor ecology) OUTPATIENT [id number] DERIAN HAMMER 06/24 Released w/o Limitations [employer] ([facility])(G ynecolo gy) [facility] [employer] ([facility])(Plant Science Professor ecology) TELE CONSULT [id number] Notes Entered by: JESSICA REID 01 Jul 2019 1710 ------- ------- ------- ------- -- results ZAINAB SLADE 07/01 Referred for Appointment [employer] [facility])(G ynecolo gy) [employer] ([facility])(Plant Science Professor ecology) OUTPATIENT [id number] irregul papito blekirkin g/possi ble EMB QUYEN CHANG 07/18 Released w/o Limitations [employer] ([facility])(G ynecolo gy) [employer] ([facility])(Ob/ Plant Science Professor) TELE CONSULT [id number] Notes Entered by: DELMY HERRERA 26 Aug 2019 1558 ------- ------- ------- ------- -- Ultraso und li s CLAUDIA CAMERON 08/26 Referred for Appointment [employer] ([facility])(O b/Plant Science Professor) [address] [place] [address] Ronny MORRISONB [facility])(Ob/ Plant Science Professor) OUTPATIENT [id number] PreOp per provide r/ OB clinic QUYEN CHANG 09/26 Released w/o Limitations [address] [place] [address] Ronny MORRISONB ([facility])(O b/Plant Science Professor) [address] [place] [address] Ronny MORRISONB ([facility])(Plant Science Professor ecology) TELE CONSULT [id number] Notes Entered by: Jo Ann CAMERON 27 Sep 2019 1050 ------- ------- ------- ------- -- SURGERY JASPER barnes [id number] @1130/G reen/75 [phone] CLAUDIA CAMERON 09/27 Referred for Appointment [address] [place] [address] Ronny MORRISONB [facility])(G ynecolo gy) [address] [place] [address] Ronny MORRIOSNB [facility])(Sco tt [facility] Fam Res Tm Green) OUTPATIENT [id number] dry skin on forehea d FERMÍN PEREIRA 09/30 Released w/o Limitations [address] [place] [address] Ronny MORRISONB ([facility])(S cott [facility] Fam Res Tm Green) [address] [place] [address] Ronny MORRISONB [facility])(Plant Science Professor ecology) TELE CONSULT [id number] Notes Entered by: Jo Ann CAMERON 13 Oct 2019 1634 ------- ------- ------- ------- -- CLAUDIA Vásquez 10/13 Referred for Appointment [address] [place] [address] Ronny MORRISONB [facility])(G ynecolo gy) [address] [place] [address] Ronny MORRISONB ([facility])(Ob/ Plant Science Professor) OUTPATIENT [id number] 2wk Post Op per provide r/ QUYEN CHANG 10/17 Released w/o Limitations [address] [place] [address] Ronny MORRISONB ([facility])(O b/Plant Science Professor) Procedures Combined list of: 1) Procedures from Department of Veterans Affairs facilities [facility], not all VA non-surgical procedures are included; 2) All procedures from the Department of Defense facilities. Procedure Procedure Type Code Date Perfomer Comments Sourc e Endometrial Biopsy By Suction Endometrial Biopsy By Suction [id number] JAQUELIN DERIAN S [facility] Endometrial Biopsy By Suction Endometrial Biopsy By Suction [id number] 018 RADHA REID Test Test 28280 018 RADHA REID [facility] Non-Physician Phone Call To Patient/Provider Brief (5-10min) Non-Physician Phone Call To Patient/Provider Brief (5-10min) 43890 018 CLAUDIA CAMERON [facility] Mobilization Soft Ti ue Mobilization Soft Tissue 88824 018 JESSICA ROCK Osteopathic Manip Treatment (OMT) 3-4 Body Regions Involved Osteopathic Manip Treatment (OMT) 3-4 Body Regions Involved [id number] 018 JESSICA ROCK Osteopathic Manip Treatment (OMT) 3-4 Body Regions Involved Osteopathic Manip Treatment (OMT) 3-4 Body Regions Involved [id number] 018 SHAWANDA HENDRIX [facility] Cervical Pap Smear Cervical Pap Smear 99219 01/22 016 ZOYA EVANS Scanning Computerized Ophthalmic Diagnostic Imaging Optic Nerve Scanning Computerized Ophthalmic Diagnostic Imaging Optic Nerve 81180 016 RICH RAYMOND Visual Dutta Test Intermediate Examination Visual Dutta Test Intermediate Examination 29526 016 RICH RAYMOND Determination Of Refractive State Determination Of Refractive State 44982 016 RICH RAYMOND Ophthalmological New Patient Start Comprehensive Care Ophthalmological New Patient Start Comprehensive Care [id number] RICH RAYMOND Non-Physician Phone Call To Patient/Provider Brief (5-10min) Non-Physician Phone Call To Patient/Provider Brief (5-10min) [id number] CON BALLESTEROS Saline Infusion Sonohysterography W/ Saline Inj During Transvaginal Sonography Saline Infusion Sonohysterography W/ Saline Inj During Transvaginal Sonography [id number] ANKUSH DENNY [facility] Non-Physician Phone Call To Patient/Provider Brief (5-10min) Non-Physician Phone Call To Patient/Provider Brief (5-10min) [id number] OWEN WALKER Postoperative Visit, Without Charge Postoperative Visit, Without Charge [id number] [id number] ALFIE POPE Ricky [facility] Exercises A isted Exercises For ROM Exercises Assisted Exercises For ROM [id number] GALE MASON [facility] Physical Medicine Physical Therapy Evaluation Physical Medicine Physical Therapy Evaluation [id number] [phone] GALE MASON [facility] Scanning Computerized Ophthalmic Diagnostic Imaging Optic Nerve Scanning Computerized Ophthalmic Diagnostic Imaging Optic Nerve [id number] HUNTERGLENN [facility] Determination Of Refractive State Determination Of Refractive State [id number] GLENN JUDGE [facility] Ophthalmological New Patient Start Comprehensive Care Ophthalmological New Patient Start Comprehensive Care [id number] [facility] Screening Test Of Visual Acuity, Quantitative, Bilateral Screening Test Of Visual Acuity, Quantitative, Bilateral [id number] JOHNNY FOSTER [facility] Screening papanicolaou smear; obtaining, preparing and conveyance of cervical or vaginal smear to laboratory 012 ALFIE POPE [facility] Holding chamber or spacer for use with an inhaler or nebulizer; without mask 009 YANG YATES AeroChamber given to patient [facility] Spirometry Pre-bronchodilator Spirometry Pre-bronchodilator [id number] RICHARD SCHNEIDER [facility] Screening papanicolaou smear; obtaining, preparing and conveyance of cervical or vaginal smear to laboratory 009 ALEYDA MERRITT [facility] Destruction Of Benign Lesion By Any Method 1 - 14 Lesions Destruction Of Benign Lesion By Any Method 1 - 14 Lesions [id number] FERMÍN PEREIRA [facility] Social History Combined list of available smoking, tobacco, and other social history from Department of Defense and Veterans Affairs facilities. Social History Type Response Date Comment Sour e This section is an empty social history section. [employer]
--- OUTSIDE RECORDS SUMMARY | 2025-04-25 10:19 | XMS_ITS | Patient Health Record ---
Author Organization [facility] Spice[facility]M Address [facility] [facility] [address] [place] [address] Care Team Providers Care Tire Adjuster Name Role Phone Anay Freeman Primary Care Provider UnavailGabriela Willoughby Unavailable [phone] Harish Roche Unavailable [phone] Allergies Allergen (clinical drug ingredient) Drug/Non Drug Allergy documented on EMR Reaction Allergy Type Onset Date Status Vicodin Unknown Drug Allergy Active atomoxetine Atomoxetine Unknown Drug Allergy Act morris Results Component Value Reference Range Notes UDT Reviewed date:12/09/2024 10:45:23 AM Interpretation: Performing Lab: Notes/Report: THC N 0 - 50 ng/ml Cocaine N 0 - 300 ng/ml Amphetamine N 0 - 1000 ng/ml Buprenorphine (BUP) N 0 - 10 ng/ml Secobarbital (Bar) N 0 - 300 ng/ml Oxazepam (BZO) N 0 - 300 ng/ml 6-nollscqxsf-1,4-kgeqqspj-3,3-diphenylpyrrolidine (MONALISA P) N 0 - 300 ng/ml Methamphetamine (MET) N 0 - 1000 ng/ml Methylenedioxymethamphetamine (MDMA) N 0 - 500 ng/ml Morphine (MOP 300/[id number]) N 0 - 300 ng/ml Methadone (MTD) N 0 - 300 ng/ml Phencyclidine (PCP) N 0 - 25 ng/ml Nortriptyline (TCA) N 0 - 1000 ng/ml Oxycodone N 0 - 300 ng/ml x N 0 - 300 ng/ml Reason For Referral No Information Medications Medication SIG (Take, Route, Frequency, Duration) Notes Start Date End Date Status Sertraline HCl 25 MG 1 tablet Orally Onc e a day for 90 days Active buPROPion HCl ER (XL) 150 MG 1 tablet Oral Once a day for 90 days Active Social History Tobacco Use: Social History Observation Description Date Details (start date - stop date) Never Smoker NA - NA Sex Assigned At : Social History Observation Description Sex Assigned At Female Household Question Answer Notes Marital status: Number of adults in household: 2 Number of children in household: 0 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 Yes How often did you have a dri nk containing alcohol in the past year? 2 to 4 times a month (2 points) How many drinks did you have on a typical day when you were drinking in the past year? Declined to specify (0 point) How often did you have six o r more drinks on one occasion in the past year? 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) Active confirmed Problem Depression Screening (401345853) Encounter for screening for depression (Z13.31) Active confirmed Problem [id number] JOJO (generalized anxiety disorder) (F41.1) Active confirmed Problem [id number] ADHD (attention deficit hyperactivity disorder), combined type (F90.2) Active confirmed Vital Signs Heart Rate 88 /min 03/28/2025 Respiratory Rate 18 /min 03/28/2025 Height-cm 175.26 cm 03/28/2025 Blood pressure diastolic 73 mm Hg 03/28/2025 Weight-kg 69.85 kg 03/28/2025 Height 69 in 03/28/2025 Blood pressure systolic 107 mm Hg 03/28/2025 Weight 154.0 lbs 03/28/2025 BMI 22.74 kg/m2 03/28/2025 Encounters Encounter Location Date Provider Diagnosis [facility] [address] [address] 12/09/2024 Gabriela Torres JOJO (generalized anxiety disorder) F41.1 ; Mixed obsessional thoughts and acts F42.2 and ADHD (attention deficit hyperactivity disorder), combined type F90.2 [place] [address] [facility] [address] [place] [address] 12/12/2024 Harish Roche Min of concentratio n R41.840 [place] [address] [facility] [address] [place] [address] 12/19/2024 Gabriela Thery JOJO (generalized anxiety disorder) F41.1 ; Mixed obsessional thoughts and acts F42.2 and ADHD (attention deficit hyperactivity disorder), combined type F90.[address] [facility] [address] [place] [address] 01/10/2025 Gabriela Thery JOJO (generalized anxiety disorder) F41.1 ; Mixed obsessional thoughts and acts F42.2 and ADHD (attention deficit hyperactivity disorder), combined type F90.[address] [address] 01/31/2025 Gabriela Thery Encounter for screen ing for depression Z13.31 ; Encounter for screening for cardiovascular disorders Z13.6 ; JOJO (generalized anxiety disorder) F41.1 ; Mixed obsessional thoughts and acts F42.2 and ADHD (attention deficit hyperactivity disorder), combined type F90.[address] [address] 02/28/2025 Gabriela Thery Encounter for screen ing for depression Z13.31 ; Encounter for screening for cardiovascular disorders Z13.6 ; JOJO (generalized anxiety disorder) F41.1 ; Mixed obsessional thoughts and acts F42.2 and ADHD (attention deficit hyperactivity disorder), combined type F90.[address] [address] 03/28/2025 Gabriela Thery Encounter for screen ing for cardiovascular disorders Z13.6 ; Encounter for screening for depression Z13.31 ; JOJO (generalized anxiety disorder) F41.1 ; Mixed obsessional thoughts and acts F42.2 ; ADHD (attention deficit hyperactivity disorder), combined type F90.2 and Negative depression screening Z13.31 [place] [address] [address] 04/24/2025 Gabriela Thery [place] [address] [place] [address] [place] [address] 01/06/2025 Gabriela Torres [facility] [address] [place] [address] [place] [address] 01/29/2025 Gabriela Torres [facility] [address] [place] [address] [place] [address] 02/27/2025 [facility]vng [facility] Assessments Encounter Date Diagnosis (ICD Code) Assessment Notes Treatment Notes Treatment Clinical Notes Section Notes 12/09/2024 Mixed obsessional thoughts and acts (ICD-10 - F42.2) Obsessive-Compu lsive Disorder: Care Instructions material was published 1. JOJO disucss and educated on medication options SSRI - for anxiety and OCD Add Sertraline 50 mg daily, 2. OCD- Discuss TMS and educated pamplet given discuss having plate and screws upper jaw palate Zoloft 50 mg daily 3. ADHD schedule ADHD testing 4. cannbis use - reported uses gummies 1x month Recommend decrease/stop cannabis use as it can negatively impact mood, motivation, anxiety, sleep, focus/concentrati on/memory (vigilance, elasticity, processing and attention); can also contribute to development of psychosis. http_s://www.nimh .nih.gov/health/t opics/mental-heal th-medications http_s://www.ellen .org/About-Mental -Illness/Treatmen ts/Mental-Health- Medications Recommend decrease/stop cannabis use as it may be negatively impacting mood, motivation, anxiety, sleep, focus; can also contribute to development of psychosis Cannabis/marijuan a information: http_s://pantera.nih .gov/publications /drugfacts/cannab is-marijuana http_s://www.[employer]/canna mqu-cqs-mxbcbjnu- marijuana-adhd/ http_s://www.ellen .org/About-Mental -Illness/Mental-H ealth-Conditions http_s://psychcen tral.com/depressi on/the-cognitive- eqzkrnbu-cs-bdgsw ssion#treatments http__s://www.nim .nih.gov/health/ topics/mental-hea lth-medications http__s://www.nam i.org/About-Menta l-Illness/Treatme nts/Mental-Health -Medications educated on all medications, benefits, side effects and risk, and educated on depression, anxiety, and ADHD, mood d/o and educated on compliance of medications, metabolic and movement d/o education appointment's, continue therapy discussion with patient about course of treatment and patient instructions. education on serotonin syndrome Discussed and educated pt regarding benzodiazepines are generally not intended for prolonged use and that use can cause tolerance, dependence, depression, and associated memory issues including dementias (this list is not exhaustive). Benzodiazepine use is generally not recommended concurrently with pain medications and/or other controlled substances educated on all medications, benefits, side effects and risk, and educated on depression, anxiety, and ADHD, mood d/o and educated on compliance of medications, metabolic and movement d/o education appointment is, continue therapy discussion with patient about course of treatment and patient instructions. education on serotonin syndrome SSRI/SNRI side effects discussed including but not limited to, gastric upset, nausea, vomiting, diarrhea and/or constipation, weight changes, sexual side effects including loss of libido, increased suicidal thoughts/behavior s in children and young adults, and serotonin syndrome. Medication Management and Follow-Up - Plan: discuss and educated on TMS for OCD- patient is intersted to speak with Dr. Roche - educated about metal in upper jaw and may not qualify - Schedule follow-up appointments every 1-3 months to monitor the patient's response to the medication regimen. - Reinforce the importance of avoiding recreational drug use due to potential neurotoxicity and interactions with prescribed medications. 12/09/2024 JOJO (generalized anxiety disorder) (ICD-10 - F41.1) Learning About Generalized Anxiety Disorder material was published, Generalized Anxiety Disorder: Care Instructions material was published, Learning About Transcranial Magnetic Stimulation (TMS) material was published, Learning About Anxiety Disorders material was published 1. JOJO disucss and educated on medication options SSRI - for anxiety and OCD Add Sertraline 50 mg daily, 2. OCD- Discuss TMS and educated pamplet given discuss having plate and screws upper jaw palate Zoloft 50 mg daily 3. ADHD schedule ADHD testing 4. cannbis use - reported uses gummies 1x month Recommend decrease/stop cannabis use as it can negatively impact mood, motivation, anxiety, sleep, focus/concentrati on/memory (vigilance, elasticity, processing and attention); can also contribute to development of psychosis. http_s://www.nimh .nih.gov/health/t opics/mental-heal th-medications http_s://www.ellen .org/About-Mental -Illness/Treatmen ts/Mental-Health- Medications Recommend decrease/stop cannabis use as it may be negatively impacting mood, motivation, anxiety, sleep, focus; can also contribute to development of psychosis Cannabis/marijuan a information: http_s://pantera.nih .gov/publications /drugfacts/cannab is-marijuana http_s://wwwEntrepreneur Education [employer] Corporation/canna hbk-buu-yfiohyjb- marijuana-adhd/ http_s://www.ellen .org/About-Mental -Illness/Mental-H ealth-Conditions http_s://Senscient/depressi on/the-cognitive- vcoeigwr-ei-snnwx ssion#treatments http__s://www.[facility].nih.gov/health/ topics/mental-hea lth-medications http__s://www.nam i.org/About-Menta l-Illness/Treatme nts/Mental-Health -Medications educated on all medications, benefits, side effects and risk, and educated on depression, anxiety, and ADHD, mood d/o and educated on compliance of medications, metabolic and movement d/o education appointment's, continue therapy discussion with patient about course of treatment and patient instructions. education on serotonin syndrome Discussed and educated pt regarding benzodiazepines are generally not intended for prolonged use and that use can cause tolerance, dependence, depression, and associated memory issues including dementias (this list is not exhaustive). Benzodiazepine use is generally not recommended concurrently with pain medications and/or other controlled substances educated on all medications, benefits, side effects and risk, and educated on depression, anxiety, and ADHD, mood d/o and educated on compliance of medications, metabolic and movement d/o education appointment is, continue therapy discussion with patient about course of treatment and patient instructions. education on serotonin syndrome SSRI/SNRI side effects discussed including but not limited to, gastric upset, nausea, vomiting, diarrhea and/or constipation, weight changes, sexual side effects including loss of libido, increased suicidal thoughts/behavior s in children and young adults, and serotonin syndrome. Medication Management and Follow-Up - Plan: discuss and educated on TMS for OCD- patient is intersted to speak with Dr. Roche - educated about metal in upper jaw and may not qualify - Schedule follow-up appointments every 1-3 months to monitor the patient's response to the medication regimen. - Reinforce the importance of avoiding recreational drug use due to potential neurotoxicity and interactions with prescribed medications. 12/12/2024 Lack of concentration (ICD-10 - R41.840) 12/19/2024 JOJO (generalized anxiety disorder) (ICD-10 - F41.1) Learning About Generalized Anxiety Disorder material was published, Generalized Anxiety Disorder: Care Instructions material was published, Learning About Transcranial Magnetic Stimulation (TMS) material was published, Learning About Anxiety Disorders material was published, Learning About Generalized Anxiety Disorder material was published, Generalized Anxiety Disorder: Care Instructions material was published, Learning About Transcranial Magnetic Stimulation (TMS) material was published 1. JOJO disucss and educated on medication options SSRI - for anxiety and OCD Sertraline 50 mg bedtime- improving depression, anxiety and OCD [facility] 2. OCD- Discuss TMS and educated- discuss with Dr. Roche and need to know type metal plate and screws upper jaw before able to do TMS pamplet given discuss having plate and screws upper jaw palate Zoloft 50 mg daily 3. ADHD reviewewd ADHD Creyos testing- Indicative of symptoms that are consistent with ADHD ADHD stimulates education Discuss with patient risk of misuse, abuse, and addiction before prescribing stimulant medicines. Jig Grinder patients not to share their prescribed stimulant with anyone else. Educate patients and their families on these serious risks, proper storage of the medicine, and proper disposal of any unused medicine. Educated patient will monitor Throughout treatment, regularly assess and monitor them for signs and symptoms of nonmedical use, addiction, and potential diversion, which may be evidenced by more frequent renewal. requests than warranted by the prescribed dosage. Random UDS [place] prescription reviewed discuss and educated non stimulate and stimualtes Will add Straterra 25 mg daily in am for 1 week then increase to Straterra 40 mg in am 4. cannbis use - reported NOT uses gummies Recommend decrease/stop cannabis use as it can negatively impact mood, motivation, anxiety, sleep, focus/concentrati on/memory (vigilance, elasticity, processing and attention); can also contribute to development of psychosis. http_s://www.nimh .nih.gov/health/t opics/mental-heal th-medications http_s://www.ellen .org/About-Mental -Illness/Treatmen ts/Mental-Health- Medications Recommend decrease/stop cannabis use as it may be negatively impacting mood, motivation, anxiety, sleep, focus; can also contribute to development of psychosis Cannabis/marijuan a information: http_s://pantera.nih .gov/publications /drugfacts/cannab is-marijuana http_s://www.[employer]/canna nog-hof-horzpfll- marijuana-adhd/ http_s://www.ellen .org/About-Mental -Illness/Mental-H ealth-Conditions http_s://Senscient/depressi on/the-cognitive- uabgfonl-mq-mwmid ssion#treatments http__s://www.[facility].nih.gov/health/ topics/mental-hea lth-medications http__s://www.nam i.org/About-Menta l-Illness/Treatme nts/Mental-Health -Medications educated on all medications, benefits, side effects and risk, and educated on depression, anxiety, and ADHD, mood d/o and educated on compliance of medications, metabolic and movement d/o education appointment's, continue therapy discussion with patient about course of treatment and patient instructions. education on serotonin syndrome Discussed and educated pt regarding benzodiazepines are generally not intended for prolonged use and that use can cause tolerance, dependence, depression, and associated memory issues including dementias (this list is not exhaustive). Benzodiazepine use is generally not recommended concurrently with pain medications and/or other controlled substances educated on all medications, benefits, side effects and risk, and educated on depression, anxiety, and ADHD, mood d/o and educated on compliance of medications, metabolic and movement d/o education appointment is, continue therapy discussion with patient about course of treatment and patient instructions. education on serotonin syndrome SSRI/SNRI side effects discussed including but not limited to, gastric upset, nausea, vomiting, diarrhea and/or constipation, weight changes, sexual side effects including loss of libido, increased suicidal thoughts/behavior s in children and young adults, and serotonin syndrome. Medication Management and Follow-Up - Plan: discuss and educated on TMS for OCD- patient is intersted to speak with Dr. Melchor - educated about metal in upper jaw and may not qualify - Schedule follow-up appointments every 1-3 months to monitor the patient's response to the medication regimen. - Reinforce the importance of avoiding recreational drug use due to potential neurotoxicity and interactions with prescribed medications. 01/10/2025 JOJO (generalized anxiety disorder) (ICD-10 - F41.1) Learning About Generalized Anxiety Disorder material was published, Generalized Anxiety Disorder: Care Instructions material was published, Learning About Transcranial Magnetic Stimulation (TMS) material was published, Learning About Anxiety Disorders material was published, Learning About Generalized Anxiety Disorder material was published, Generalized Anxiety Disorder: Care Instructions material was published, Learning About Transcranial Magnetic Stimulation (TMS) material was published 1. JOJO disucss and educated on medication options SSRI - for anxiety and OCD Sertraline 50 mg bedtime- improving depression, anxiety and OCD [facility] 2. OCD- Discuss TMS and educated- discuss with Dr. Roche and need to know type metal plate and screws upper jaw before able to do TMS pamplet given discuss having plate and screws upper jaw palate Zoloft 50 mg daily 3. ADHD reviewewd ADHD Creyos testing- Indicative of symptoms that are consistent with ADHD ADHD stimulates education Discuss with patient risk of misuse, abuse, and addiction before prescribing stimulant medicines. Jig Grinder patients not to share their prescribed stimulant with anyone else. Educate patients and their families on these serious risks, proper storage of the medicine, and proper disposal of any unused medicine. Educated patient will monitor Throughout treatment, regularly assess and monitor them for signs and symptoms of nonmedical use, addiction, and potential diversion, which may be evidenced by more frequent renewal. requests than warranted by the prescribed dosage. Random [facility] prescription reviewed discuss and educated non stimulate and stimualtes d/c Straterra 40 mg in am- having chest problems, distractingly cold, hands, feet, nose 4. cannbis use - reported NOT uses gummies Recommend decrease/stop cannabis use as it can negatively impact mood, motivation, anxiety, sleep, focus/concentrati on/memory (vigilance, elasticity, processing and attention); can also contribute to development of psychosis. http_s://www.nimh .nih.gov/health/t opics/mental-heal th-medications http_s://www.ellen .org/About-Mental -Illness/Treatmen ts/Mental-Health- Medications Recommend decrease/stop cannabis use as it may be negatively impacting mood, motivation, anxiety, sleep, focus; can also contribute to development of psychosis Cannabis/marijuan a information: http_s://pantera.nih .gov/publications /drugfacts/cannab is-marijuana http_s://www.[employer]/canna hdd-xvk-obtfzhdk- marijuana-adhd/ http_s://www.ellen .org/About-Mental -Illness/Mental-H ealth-Conditions http_s://psychMultimedia Plus | QuizScore/depressi on/the-cognitive- hfewrlzb-nw-nqgvq ssion#treatments http__s://www.[facility].nih.gov/health/ topics/mental-hea lth-medications http__s://www.nam i.org/About-Menta l-Illness/Treatme nts/Mental-Health -Medications educated on all medications, benefits, side effects and risk, and educated on depression, anxiety, and ADHD, mood d/o and educated on compliance of medications, metabolic and movement d/o education appointment's, continue therapy discussion with patient about course of treatment and patient instructions. education on serotonin syndrome Discussed and educated pt regarding benzodiazepines are generally not intended for prolonged use and that use can cause tolerance, dependence, depression, and associated memory issues including dementias (this list is not exhaustive). Benzodiazepine use is generally not recommended concurrently with pain medications and/or other controlled substances educated on all medications, benefits, side effects and risk, and educated on depression, anxiety, and ADHD, mood d/o and educated on compliance of medications, metabolic and movement d/o education appointment is, continue therapy discussion with patient about course of treatment and patient instructions. education on serotonin syndrome SSRI/SNRI side effects discussed including but not limited to, gastric upset, nausea, vomiting, diarrhea and/or constipation, weight changes, sexual side effects including loss of libido, increased suicidal thoughts/behavior s in children and young adults, and serotonin syndrome. Medication Management and Follow-Up - Plan: discuss and educated on TMS for OCD- patient is intersted to speak with Dr. Roche - educated about metal in upper jaw and may not qualify - Schedule follow-up appointments every 1-3 months to monitor the patient's response to the medication regimen. - Reinforce the importance of avoiding recreational drug use due to potential neurotoxicity and interactions with prescribed medications. 01/31/2025 Encounter for screening for depression (ICD-10 - Z13.31) 1. JOJO disucss and educated on medication options SSRI - for anxiety and OCD Sertraline 50 mg bedtime- improving depression, anxiety and OCD no refill needed today [facility] 2. OCD- Discuss TMS and educated- discuss with Dr. Roche and need to know type metal plate and screws upper jaw before able to do TMS pamplet given discuss having plate and screws upper jaw palate Zoloft 50 mg daily 3. ADHD reviewewd ADHD Creyos testing- Indicative of symptoms that are consistent with ADHD ADD Wellbutrin XL 150 mg in am discuss and education on all rx ADHD stimulates education Discuss with patient risk of misuse, abuse, and addiction before prescribing stimulant medicines. Jig Grinder patients not to share their prescribed stimulant with anyone else. Educate patients and their families on these serious risks, proper storage of the medicine, and proper disposal of any unused medicine. Educated patient will monitor Throughout treatment, regularly assess and monitor them for signs and symptoms of nonmedical use, addiction, and potential diversion, which may be evidenced by more frequent renewal. requests than warranted by the prescribed dosage. Random [facility]DS [place] prescription reviewed discuss and educated non stimulate and stimualtes HX Straterra 40 mg in am- having chest problems, distractingly cold, hands, feet, nose 4. cannbis use - reported NOT uses gummies Recommend decrease/stop cannabis use as it can negatively impact mood, motivation, anxiety, sleep, focus/concentrati on/memory (vigilance, elasticity, processing and attention); can also contribute to development of psychosis. http_s://www.nimh .nih.gov/health/t opics/mental-heal th-medications http_s://www.ellen .org/About-Mental -Illness/Treatmen ts/Mental-Health- Medications Recommend decrease/stop cannabis use as it may be negatively impacting mood, motivation, anxiety, sleep, focus; can also contribute to development of psychosis Cannabis/marijuan a information: http_s://pantera.nih .gov/publications /drugfacts/cannab is-marijuana http_s://www.[employer]/pilo pge-xft-ycblwqkr- marijuana-adhd/ http_s://www.ellen .org/About-Mental -Illness/Mental-H ealth-Conditions http_s://psychcen [employer].com/depressi on/the-cognitive- anhexfnq-dy-zlpkh ssion#treatments http__s://www.[facility].nih.gov/health/ topics/mental-hea lth-medications http__s://www.nam i.org/About-Menta l-Illness/Treatme nts/Mental-Health -Medications educated on all medications, benefits, side effects and risk, and educated on depression, anxiety, and ADHD, mood d/o and educated on compliance of medications, metabolic and movement d/o education appointment's, continue therapy discussion with patient about course of treatment and patient instructions. education on serotonin syndrome Discussed and educated pt regarding benzodiazepines are generally not intended for prolonged use and that use can cause tolerance, dependence, depression, and associated memory issues including dementias (this list is not exhaustive). Benzodiazepine use is generally not recommended concurrently with pain medications and/or other controlled substances educated on all medications, benefits, side effects and risk, and educated on depression, anxiety, and ADHD, mood d/o and educated on compliance of medications, metabolic and movement d/o education appointment is, continue therapy discussion with patient about course of treatment and patient instructions. education on serotonin syndrome SSRI/SNRI side effects discussed including but not limited to, gastric upset, nausea, vomiting, diarrhea and/or constipation, weight changes, sexual side effects including loss of libido, increased suicidal thoughts/behavior s in children and young adults, and serotonin syndrome. Medication Management and Follow-Up - Plan: discuss and educated on TMS for OCD- SPOKE with Dr. Roche - educated about metal in upper jaw and may not qualify- need to know type metal - Schedule follow-up appointments every 1-3 months to monitor the patient's response to the medication regimen. - Reinforce the importance of avoiding recreational drug use due to potential neurotoxicity and interactions with prescribed medications. 02/28/2025 Encounter for screening for depression (ICD-10 - Z13.31) 1. JOJO disucss and educated on medication options SSRI - for anxiety and OCD Presently taking Sertraline 50 mg bedtime- reported has internal tremor feeling and r/o Sertraline- patient will see PCP also and refer to neurologist to r/o tremor d/o, hx tremor feeling over 15 years on and off rx PLAN- Decrease Sertraline 25 mg bedtime and monitor tremors feeling monitor depression, anxiety and OCD discuss Gene Sight testing [facility] 2. OCD- Discuss TMS and educated- discuss with Dr. Roche and need to know type metal plate and screws upper jaw before able to do TMS pamplet given discuss having plate and screws upper jaw palate Zoloft 25 mg daily 3. ADHD reviewewd ADHD Creyos testing- Indicative of symptoms that are consistent with ADHD- reported improved at this time patient not taking- will stop Wellbutrin XL 150 mg in am discuss and education on all rx ADHD stimulates education Discuss with patient risk of misuse, abuse, and addiction before prescribing stimulant medicines. Jig Grinder patients not to share their prescribed stimulant with anyone else. Educate patients and their families on these serious risks, proper storage of the medicine, and proper disposal of any unused medicine. Educated patient will monitor Throughout treatment, regularly assess and monitor them for signs and symptoms of nonmedical use, addiction, and potential diversion, which may be evidenced by more frequent renewal. requests than warranted by the prescribed dosage. Random UDS [place] prescription reviewed discuss and educated non stimulate and stimualtes HX Straterra 40 mg in am- having chest problems, distractingly cold, hands, feet, nose 4. cannbis use - reported NOT uses gummies Recommend decrease/stop cannabis use as it can negatively impact mood, motivation, anxiety, sleep, focus/concentrati on/memory (vigilance, elasticity, processing and attention); can also contribute to development of psychosis. http_s://www.nimh .nih.gov/health/t opics/mental-heal th-medications http_s://www.ellen .org/About-Mental -Illness/Treatmen ts/Mental-Health- Medications Recommend decrease/stop cannabis use as it may be negatively impacting mood, motivation, anxiety, sleep, focus; can also contribute to development of psychosis Cannabis/marijuan a information: http_s://pantera.nih .gov/publications /drugfacts/cannab is-marijuana http_s://www.[employer]/pilo tbe-sar-odvwnuzs- marijuana-adhd/ http_s://www.ellen .org/About-Mental -Illness/Mental-H ealth-Conditions http_s://psychcen tral.com/depressi on/the-cognitive- qtcpzuil-fz-rritq ssion#treatments http__s://www.[facility].nih.gov/health/ topics/mental-hea lt-medications http__s://www.nam i.org/About-Menta l-Illness/Treatme nts/Mental-Health -Medications educated on all medications, benefits, side effects and risk, and educated on depression, anxiety, and ADHD, mood d/o and educated on compliance of medications, metabolic and movement d/o education appointment's, continue therapy discussion with patient about course of treatment and patient instructions. education on serotonin syndrome Discussed and educated pt regarding benzodiazepines are generally not intended for prolonged use and that use can cause tolerance, dependence, depression, and associated memory issues including dementias (this list is not exhaustive). Benzodiazepine use is generally not recommended concurrently with pain medications and/or other controlled substances educated on all medications, benefits, side effects and risk, and educated on depression, anxiety, and ADHD, mood d/o and educated on compliance of medications, metabolic and movement d/o education appointment is, continue therapy discussion with patient about course of treatment and patient instructions. education on serotonin syndrome SSRI/SNRI side effects discussed including but not limited to, gastric upset, nausea, vomiting, diarrhea and/or constipation, weight changes, sexual side effects including loss of libido, increased suicidal thoughts/behavior s in children and young adults, and serotonin syndrome. Medication Management and Follow-Up - Plan: discuss and educated on TMS for OCD- SPOKE with Dr. Roche - educated about metal in upper jaw and may not qualify- need to know type metal - Schedule follow-up appointments every 1-3 months to monitor the patient's response to the medication regimen. - Reinforce the importance of avoiding recreational drug use due to potential neurotoxicity and interactions with prescribed medications. 03/28/2025 Encounter for screening for cardiovascular disorders (ICD-10 - Z13.6) 1. JOJO disucss and educated on medication options SSRI - for anxiety and OCD reported has internal tremor feeling and r/o Sertraline- patient will see PCP also and refer to neurologist to r/o tremor d/o, hx tremor feeling over 15 years on and off rx- schedule PCP and will be refer to neurologist r/o tremor PLAN- Sertraline 25 mg bedtime monitor tremors feeling- improved with lower dose monitor depression, anxiety and OCD discuss Gene Sight testing [facility] 2. OCD- Discuss TMS and educated- discuss with Dr. Roche and need to know type metal plate and screws upper jaw before able to do TMS pamplet given discuss having plate and screws upper jaw palate Zoloft 25 mg daily 3. ADHD reviewewd ADHD Creyos testing- Indicative of symptoms that are consistent with ADHD- reported improved at this time patient not taking rx schedule to see PCP for refer to Neurologist with tremor ADHD stimulates education Discuss with patient risk of misuse, abuse, and addiction before prescribing stimulant medicines. Jig Grinder patients not to share their prescribed stimulant with anyone else. Educate patients and their families on these serious risks, proper storage of the medicine, and proper disposal of any unused medicine. Educated patient will monitor Throughout treatment, regularly assess and monitor them for signs and symptoms of nonmedical use, addiction, and potential diversion, which may be evidenced by more frequent renewal. requests than warranted by the prescribed dosage. Random UDS [place] prescription reviewed discuss and educated non stimulate and stimualtes HX Straterra 40 mg in am- having chest problems, distractingly cold, hands, feet, nose 4. cannbis use - reported NOT uses gummies Recommend decrease/stop cannabis use as it can negatively impact mood, motivation, anxiety, sleep, focus/concentrati on/memory (vigilance, elasticity, processing and attention); can also contribute to development of psychosis. http_s://www.nimh .nih.gov/health/t opics/mental-heal th-medications http_s://www.ellen .org/About-Mental -Illness/Treatmen ts/Mental-Health- Medications Recommend decrease/stop cannabis use as it may be negatively impacting mood, motivation, anxiety, sleep, focus; can also contribute to development of psychosis Cannabis/marijuan a information: http_s://pantera.nih .gov/publications /drugfacts/cannab is-marijuana http_s://www.[employer]/pilo ted-owr-kysazlgh- marijuana-adhd/ http_s://www.ellen .org/About-Mental -Illness/Mental-H ealt-Conditions http_s://psychcen tral.com/depressi on/the-cognitive- sjqfviad-fy-qklvy ssion#treatments http__s://www.nim h.nih.gov/health/ topics/mental-hea [facility]-medications http__s://www.nam i.org/About-Menta l-Illness/Treatme nts/Mental-Health -Medications educated on all medications, benefits, side effects and risk, and educated on depression, anxiety, and ADHD, mood d/o and educated on compliance of medications, metabolic and movement d/o education appointment's, continue therapy discussion with patient about course of treatment and patient instructions. education on serotonin syndrome Discussed and educated pt regarding benzodiazepines are generally not intended for prolonged use and that use can cause tolerance, dependence, depression, and associated memory issues including dementias (this list is not exhaustive). Benzodiazepine use is generally not recommended concurrently with pain medications and/or other controlled substances educated on all medications, benefits, side effects and risk, and educated on depression, anxiety, and ADHD, mood d/o and educated on compliance of medications, metabolic and movement d/o education appointment is, continue therapy discussion with patient about course of treatment and patient instructions. education on serotonin syndrome SSRI/SNRI side effects discussed including but not limited to, gastric upset, nausea, vomiting, diarrhea and/or constipation, weight changes, sexual side effects including loss of libido, increased suicidal thoughts/behavior s in children and young adults, and serotonin syndrome. Medication Management and Follow-Up - Plan: discuss and educated on TMS for OCD- SPOKE with Dr. Rcohe - educated about metal in upper jaw and may not qualify- need to know type metal - Schedule follow-up appointments every 1-3 months to monitor the patient's response to the medication regimen. - Reinforce the importance of avoiding recreational drug use due to potential neurotoxicity and interactions with prescribed medications. 01/10/2025 Mixed obsessional thoughts and acts (ICD-10 - F42.2) Obsessive-Compu lsive Disorder: Care Instructions material was published, Obsessive-Compu lsive Disorder: Care Instructions material was published 1. JOJO disucss and educated on medication options SSRI - for anxiety and OCD Sertraline 50 mg bedtime- improving depression, anxiety and OCD [facility] 2. OCD- Discuss TMS and educated- discuss with Dr. Roche and need to know type metal plate and screws upper jaw before able to do TMS pamplet given discuss having plate and screws upper jaw palate Zoloft 50 mg daily 3. ADHD reviewewd ADHD Creyos testing- Indicative of symptoms that are consistent with ADHD ADHD stimulates education Discuss with patient risk of misuse, abuse, and addiction before prescribing stimulant medicines. Jig Grinder patients not to share their prescribed stimulant with anyone else. Educate patients and their families on these serious risks, proper storage of the medicine, and proper disposal of any unused medicine. Educated patient will monitor Throughout treatment, regularly assess and monitor them for signs and symptoms of nonmedical use, addiction, and potential diversion, which may be evidenced by more frequent renewal. requests than warranted by the prescribed dosage. Random UDS [place] prescription reviewed discuss and educated non stimulate and stimualtes d/c Straterra 40 mg in am- having chest problems, distractingly cold, hands, feet, nose 4. cannbis use - reported NOT uses gummies Recommend decrease/stop cannabis use as it can negatively impact mood, motivation, anxiety, sleep, focus/concentrati on/memory (vigilance, elasticity, processing and attention); can also contribute to development of psychosis. http_s://www.nimh .nih.gov/health/t opics/mental-heal th-medications http_s://www.ellen .org/About-Mental -Illness/Treatmen ts/Mental-Health- Medications Recommend decrease/stop cannabis use as it may be negatively impacting mood, motivation, anxiety, sleep, focus; can also contribute to development of psychosis Cannabis/marijuan a information: http_s://pantera.nih .gov/publications /drugfacts/cannab is-marijuana http_s://www.[employer]/canna fjy-dzw-xeofaock- marijuana-adhd/ http_s://www.ellen .org/About-Mental -Illness/Mental-H ealth-Conditions http_s://psychcen tral.com/depressi on/the-cognitive- sdizlcee-rb-pnvby ssion#treatments http__s://www.nim .nih.gov/health/ topics/mental-hea lth-medications http__s://www.nam i.org/About-Menta l-Illness/Treatme nts/Mental-Health -Medications educated on all medications, benefits, side effects and risk, and educated on depression, anxiety, and ADHD, mood d/o and educated on compliance of medications, metabolic and movement d/o education appointment's, continue therapy discussion with patient about course of treatment and patient instructions. education on serotonin syndrome Discussed and educated pt regarding benzodiazepines are generally not intended for prolonged use and that use can cause tolerance, dependence, depression, and associated memory issues including dementias (this list is not exhaustive). Benzodiazepine use is generally not recommended concurrently with pain medications and/or other controlled substances educated on all medications, benefits, side effects and risk, and educated on depression, anxiety, and ADHD, mood d/o and educated on compliance of medications, metabolic and movement d/o education appointment is, continue therapy discussion with patient about course of treatment and patient instructions. education on serotonin syndrome SSRI/SNRI side effects discussed including but not limited to, gastric upset, nausea, vomiting, diarrhea and/or constipation, weight changes, sexual side effects including loss of libido, increased suicidal thoughts/behavior s in children and young adults, and serotonin syndrome. Medication Management and Follow-Up - Plan: discuss and educated on TMS for OCD- patient is intersted to speak with Dr. Roche - educated about metal in upper jaw and may not qualify - Schedule follow-up appointments every 1-3 months to monitor the patient's response to the medication regimen. - Reinforce the importance of avoiding recreational drug use due to potential neurotoxicity and interactions with prescribed medications. 03/28/2025 Encounter for screening for depression (ICD-10 - Z13.31) 1. JOJO disucss and educated on medication options SSRI - for anxiety and OCD reported has internal tremor feeling and r/o Sertraline- patient will see PCP also and refer to neurologist to r/o tremor d/o, hx tremor feeling over 15 years on and off rx- schedule PCP and will be refer to neurologist r/o tremor PLAN- Sertraline 25 mg bedtime monitor tremors feeling- improved with lower dose monitor depression, anxiety and OCD discuss Gene Sight testing [facility] 2. OCD- Discuss TMS and educated- discuss with Dr. Roche and need to know type metal plate and screws upper jaw before able to do TMS pamplet given discuss having plate and screws upper jaw palate Zoloft 25 mg daily 3. ADHD reviewewd ADHD Creyos testing- Indicative of symptoms that are consistent with ADHD- reported improved at this time patient not taking rx schedule to see PCP for refer to Neurologist with tremor ADHD stimulates education Discuss with patient risk of misuse, abuse, and addiction before prescribing stimulant medicines. Jig Grinder patients not to share their prescribed stimulant with anyone else. Educate patients and their families on these serious risks, proper storage of the medicine, and proper disposal of any unused medicine. Educated patient will monitor Throughout treatment, regularly assess and monitor them for signs and symptoms of nonmedical use, addiction, and potential diversion, which may be evidenced by more frequent renewal. requests than warranted by the prescribed dosage. Random UDS [place] prescription reviewed discuss and educated non stimulate and stimualtes HX Straterra 40 mg in am- having chest problems, distractingly cold, hands, feet, nose 4. cannbis use - reported NOT uses gummies Recommend decrease/stop cannabis use as it can negatively impact mood, motivation, anxiety, sleep, focus/concentrati on/memory (vigilance, elasticity, processing and attention); can also contribute to development of psychosis. http_s://www.nimh .nih.gov/health/t opics/mental-heal th-medications http_s://www.ellen .org/About-Mental -Illness/Treatmen ts/Mental-Health- Medications Recommend decrease/stop cannabis use as it may be negatively impacting mood, motivation, anxiety, sleep, focus; can also contribute to development of psychosis Cannabis/marijuan a information: http_s://pantera.nih .gov/publications /drugfacts/cannab is-marijuana http_s://www.[employer]/canna lml-xzu-rdrrfnis- marijuana-adhd/ http_s://www.ellen .org/About-Mental -Illness/Mental-H ealth-Conditions http_s://psychcen tral.com/depressi on/the-cognitive- fzsmqgam-yk-ddxld ssion#treatments http__s://www.nim .nih.gov/health/ topics/mental-hea lth-medications http__s://www.nam i.org/About-Menta l-Illness/Treatme nts/Mental-Health -Medications educated on all medications, benefits, side effects and risk, and educated on depression, anxiety, and ADHD, mood d/o and educated on compliance of medications, metabolic and movement d/o education appointment's, continue therapy discussion with patient about course of treatment and patient instructions. education on serotonin syndrome Discussed and educated pt regarding benzodiazepines are generally not intended for prolonged use and that use can cause tolerance, dependence, depression, and associated memory issues including dementias (this list is not exhaustive). Benzodiazepine use is generally not recommended concurrently with pain medications and/or other controlled substances educated on all medications, benefits, side effects and risk, and educated on depression, anxiety, and ADHD, mood d/o and educated on compliance of medications, metabolic and movement d/o education appointment is, continue therapy discussion with patient about course of treatment and patient instructions. education on serotonin syndrome SSRI/SNRI side effects discussed including but not limited to, gastric upset, nausea, vomiting, diarrhea and/or constipation, weight changes, sexual side effects including loss of libido, increased suicidal thoughts/behavior s in children and young adults, and serotonin syndrome. Medication Management and Follow-Up - Plan: discuss and educated on TMS for OCD- SPOKE with Dr. Roche - educated about metal in upper jaw and may not qualify- need to know type metal - Schedule follow-up appointments every 1-3 months to monitor the patient's response to the medication regimen. - Reinforce the importance of avoiding recreational drug use due to potential neurotoxicity and interactions with prescribed medications. 02/28/2025 Encounter for screening for cardiovascular disorders (ICD-10 - Z13.6) 1. JOJO disucss and educated on medication options SSRI - for anxiety and OCD Presently taking Sertraline 50 mg bedtime- reported has internal tremor feeling and r/o Sertraline- patient will see PCP also and refer to neurologist to r/o tremor d/o, hx tremor feeling over 15 years on and off rx PLAN- Decrease Sertraline 25 mg bedtime and monitor tremors feeling monitor depression, anxiety and OCD discuss Gene Sight testing [facility] 2. OCD- Discuss TMS and educated- discuss with Dr. Roche and need to know type metal plate and screws upper jaw before able to do TMS pamplet given discuss having plate and screws upper jaw palate Zoloft 25 mg daily 3. ADHD reviewewd ADHD Creyos testing- Indicative of symptoms that are consistent with ADHD- reported improved at this time patient not taking- will stop Wellbutrin XL 150 mg in am discuss and education on all rx ADHD stimulates education Discuss with patient risk of misuse, abuse, and addiction before prescribing stimulant medicines. Jig Grinder patients not to share their prescribed stimulant with anyone else. Educate patients and their families on these serious risks, proper storage of the medicine, and proper disposal of any unused medicine. Educated patient will monitor Throughout treatment, regularly assess and monitor them for signs and symptoms of nonmedical use, addiction, and potential diversion, which may be evidenced by more frequent renewal. requests than warranted by the prescribed dosage. Random UDS [place] prescription reviewed discuss and educated non stimulate and stimualtes HX Straterra 40 mg in am- having chest problems, distractingly cold, hands, feet, nose 4. cannbis use - reported NOT uses gummies Recommend decrease/stop cannabis use as it can negatively impact mood, motivation, anxiety, sleep, focus/concentrati on/memory (vigilance, elasticity, processing and attention); can also contribute to development of psychosis. http_s://www.nimh .nih.gov/health/t opics/mental-heal th-medications http_s://www.ellen .org/About-Mental -Illness/Treatmen ts/Mental-Health- Medications Recommend decrease/stop cannabis use as it may be negatively impacting mood, motivation, anxiety, sleep, focus; can also contribute to development of psychosis Cannabis/marijuan a information: http_s://pantera.nih .gov/publications /drugfacts/cannab is-marijuana http_s://www.[employer]/canna wmh-uxn-qtcxfbwq- marijuana-adhd/ http_s://www.ellen .org/About-Mental -Illness/Mental-H ealth-Conditions http_s://psychcen [employer].com/depressi on/the-cognitive- bjqwsgvi-wv-bliei ssion#treatments http__s://www.nim .nih.gov/health/ topics/mental-hea lth-medications http__s://www.nam i.org/About-Menta l-Illness/Treatme nts/Mental-Health -Medications educated on all medications, benefits, side effects and risk, and educated on depression, anxiety, and ADHD, mood d/o and educated on compliance of medications, metabolic and movement d/o education appointment's, continue therapy discussion with patient about course of treatment and patient instructions. education on serotonin syndrome Discussed and educated pt regarding benzodiazepines are generally not intended for prolonged use and that use can cause tolerance, dependence, depression, and associated memory issues including dementias (this list is not exhaustive). Benzodiazepine use is generally not recommended concurrently with pain medications and/or other controlled substances educated on all medications, benefits, side effects and risk, and educated on depression, anxiety, and ADHD, mood d/o and educated on compliance of medications, metabolic and movement d/o education appointment is, continue therapy discussion with patient about course of treatment and patient instructions. education on serotonin syndrome SSRI/SNRI side effects discussed including but not limited to, gastric upset, nausea, vomiting, diarrhea and/or constipation, weight changes, sexual side effects including loss of libido, increased suicidal thoughts/behavior s in children and young adults, and serotonin syndrome. Medication Management and Follow-Up - Plan: discuss and educated on TMS for OCD- SPOKE with Dr. Roche - educated about metal in upper jaw and may not qualify- need to know type metal - Schedule follow-up appointments every 1-3 months to monitor the patient's response to the medication regimen. - Reinforce the importance of avoiding recreational drug use due to potential neurotoxicity and interactions with prescribed medications. 01/31/2025 Encounter for screening for cardiovascular disorders (ICD-10 - Z13.6) 1. JOJO disucss and educated on medication options SSRI - for anxiety and OCD Sertraline 50 mg bedtime- improving depression, anxiety and OCD no refill needed today [facility] 2. OCD- Discuss TMS and educated- discuss with Dr. Roche and need to know type metal plate and screws upper jaw before able to do TMS pamplet given discuss having plate and screws upper jaw palate Zoloft 50 mg daily 3. ADHD reviewewd ADHD Creyos testing- Indicative of symptoms that are consistent with ADHD ADD Wellbutrin XL 150 mg in am discuss and education on all rx ADHD stimulates education Discuss with patient risk of misuse, abuse, and addiction before prescribing stimulant medicines. Jig Grinder patients not to share their prescribed stimulant with anyone else. Educate patients and their families on these serious risks, proper storage of the medicine, and proper disposal of any unused medicine. Educated patient will monitor Throughout treatment, regularly assess and monitor them for signs and symptoms of nonmedical use, addiction, and potential diversion, which may be evidenced by more frequent renewal. requests than warranted by the prescribed dosage. Random UDS [place] prescription reviewed discuss and educated non stimulate and stimualtes HX Straterra 40 mg in am- having chest problems, distractingly cold, hands, feet, nose 4. cannbis use - reported NOT uses gummies Recommend decrease/stop cannabis use as it can negatively impact mood, motivation, anxiety, sleep, focus/concentrati on/memory (vigilance, elasticity, processing and attention); can also contribute to development of psychosis. http_s://www.nim .nih.gov/health/t opics/mental-heal th-medications http_s://www.ellen .org/About-Mental -Illness/Treatmen ts/Mental-Health- Medications Recommend decrease/stop cannabis use as it may be negatively impacting mood, motivation, anxiety, sleep, focus; can also contribute to development of psychosis Cannabis/marijuan a information: http_s://pantera.nih .gov/publications /drugfacts/cannab is-marijuana http_s://www.[employer]/cannbrandi xmh-mpc-uppdzoux- marijuana-adhd/ http_s://www.ellen .org/About-Mental -Illness/Mental-H ealth-Conditions http_s://psychcen [employer].com/depressi on/the-cognitive- rusanveg-ci-wgsud ssion#treatments http__s://www.nim .nih.gov/health/ topics/mental-hea lth-medications http__s://www.nam i.org/About-Menta l-Illness/Treatme nts/Mental-Health -Medications educated on all medications, benefits, side effects and risk, and educated on depression, anxiety, and ADHD, mood d/o and educated on compliance of medications, metabolic and movement d/o education appointment's, continue therapy discussion with patient about course of treatment and patient instructions. education on serotonin syndrome Discussed and educated pt regarding benzodiazepines are generally not intended for prolonged use and that use can cause tolerance, dependence, depression, and associated memory issues including dementias (this list is not exhaustive). Benzodiazepine use is generally not recommended concurrently with pain medications and/or other controlled substances educated on all medications, benefits, side effects and risk, and educated on depression, anxiety, and ADHD, mood d/o and educated on compliance of medications, metabolic and movement d/o education appointment is, continue therapy discussion with patient about course of treatment and patient instructions. education on serotonin syndrome SSRI/SNRI side effects discussed including but not limited to, gastric upset, nausea, vomiting, diarrhea and/or constipation, weight changes, sexual side effects including loss of libido, increased suicidal thoughts/behavior s in children and young adults, and serotonin syndrome. Medication Management and Follow-Up - Plan: discuss and educated on TMS for OCD- SPOKE with Dr. Roche - educated about metal in upper jaw and may not qualify- need to know type metal - Schedule follow-up appointments every 1-3 months to monitor the patient's response to the medication regimen. - Reinforce the importance of avoiding recreational drug use due to potential neurotoxicity and interactions with prescribed medications. 12/19/2024 Mixed obsessional thoughts and acts (ICD-10 - F42.2) Obsessive-Compu lsive Disorder: Care Instructions material was published, Obsessive-Compu lsive Disorder: Care Instructions material was published 1. JOJO disucss and educated on medication options SSRI - for anxiety and OCD Sertraline 50 mg bedtime- improving depression, anxiety and OCD [facility] 2. OCD- Discuss TMS and educated- discuss with Dr. Roche and need to know type metal plate and screws upper jaw before able to do TMS pamplet given discuss having plate and screws upper jaw palate Zoloft 50 mg daily 3. ADHD reviewewd ADHD Creyos testing- Indicative of symptoms that are consistent with ADHD ADHD stimulates education Discuss with patient risk of misuse, abuse, and addiction before prescribing stimulant medicines. Jig Grinder patients not to share their prescribed stimulant with anyone else. Educate patients and their families on these serious risks, proper storage of the medicine, and proper disposal of any unused medicine. Educated patient will monitor Throughout treatment, regularly assess and monitor them for signs and symptoms of nonmedical use, addiction, and potential diversion, which may be evidenced by more frequent renewal. requests than warranted by the prescribed dosage. Random UDS [place] prescription reviewed discuss and educated non stimulate and stimualtes Will add Straterra 25 mg daily in am for 1 week then increase to Straterra 40 mg in am 4. cannbis use - reported NOT uses gummies Recommend decrease/stop cannabis use as it can negatively impact mood, motivation, anxiety, sleep, focus/concentrati on/memory (vigilance, elasticity, processing and attention); can also contribute to development of psychosis. http_s://www.nim .nih.gov/health/t opics/mental-heal th-medications http_s://www.ellen .org/About-Mental -Illness/Treatmen ts/Mental-Health- Medications Recommend decrease/stop cannabis use as it may be negatively impacting mood, motivation, anxiety, sleep, focus; can also contribute to development of psychosis Cannabis/marijuan a information: http_s://pantera.nih .gov/publications /drugfacts/cannab is-marijuana http_s://www.[employer]/Wine in Blacka nho-yrl-fyiqlsyp- marijuana-adhd/ http_s://www.ellen .org/About-Mental -Illness/Mental-H ealth-Conditions http_s://psychMult[employer] | [employer]/depressi on/the-cognitive- poxbrxkw-qp-wzgpc ssion#treatments http__s://www.nim .nih.gov/health/ topics/mental-hea lth-medications http__s://www.nam i.org/About-Menta l-Illness/Treatme nts/Mental-Health -Medications educated on all medications, benefits, side effects and risk, and educated on depression, anxiety, and ADHD, mood d/o and educated on compliance of medications, metabolic and movement d/o education appointment's, continue therapy discussion with patient about course of treatment and patient instructions. education on serotonin syndrome Discussed and educated pt regarding benzodiazepines are generally not intended for prolonged use and that use can cause tolerance, dependence, depression, and associated memory issues including dementias (this list is not exhaustive). Benzodiazepine use is generally not recommended concurrently with pain medications and/or other controlled substances educated on all medications, benefits, side effects and risk, and educated on depression, anxiety, and ADHD, mood d/o and educated on compliance of medications, metabolic and movement d/o education appointment is, continue therapy discussion with patient about course of treatment and patient instructions. education on serotonin syndrome SSRI/SNRI side effects discussed including but not limited to, gastric upset, nausea, vomiting, diarrhea and/or constipation, weight changes, sexual side effects including loss of libido, increased suicidal thoughts/behavior s in children and young adults, and serotonin syndrome. Medication Management and Follow-Up - Plan: discuss and educated on TMS for OCD- patient is intersted to speak with Dr. Roche - educated about metal in upper jaw and may not qualify - Schedule follow-up appointments every 1-3 months to monitor the patient's response to the medication regimen. - Reinforce the importance of avoiding recreational drug use due to potential neurotoxicity and interactions with prescribed medications. 12/09/2024 ADHD (attention deficit hyperactivity disorder), combined type (ICD-10 - F90.2) Attention Deficit Hyperactivity Disorder (ADHD) in Adults: Care Instructions material was published, Learning About Stimulant Medicines for Attention Deficit Hyperactivity Disorder (ADHD) material was published 1. JOJO disucss and educated on medication options SSRI - for anxiety and OCD Add Sertraline 50 mg daily, 2. OCD- Discuss TMS and educated pamplet given discuss having plate and screws upper jaw palate Zoloft 50 mg daily 3. ADHD schedule ADHD testing 4. cannbis use - reported uses gummies 1x month Recommend decrease/stop cannabis use as it can negatively impact mood, motivation, anxiety, sleep, focus/concentrati on/memory (vigilance, elasticity, processing and attention); can also contribute to development of psychosis. http_s://www.nimh .nih.gov/health/t opics/mental-heal th-medications http_s://www.ellen .org/About-Mental -Illness/Treatmen ts/Mental-Health- Medications Recommend decrease/stop cannabis use as it may be negatively impacting mood, motivation, anxiety, sleep, focus; can also contribute to development of psychosis Cannabis/marijuan a information: http_s://pantera.nih .gov/publications /drugfacts/cannab is-marijuana http_s://www.[employer]/pilo ivu-het-wqfwcdcb- marijuana-adhd/ http_s://www.ellen .org/About-Mental -Illness/Mental-H ealth-Conditions http_s://psychcen tral.com/depressi on/the-cognitive- zlqhkgan-bn-rvbef ssion#treatments http__s://www.nim h.nih.gov/health/ topics/mental-hea [facility]-medications http__s://www.nam i.org/About-Menta l-Illness/Treatme nts/Mental-Health -Medications educated on all medications, benefits, side effects and risk, and educated on depression, anxiety, and ADHD, mood d/o and educated on compliance of medications, metabolic and movement d/o education appointment's, continue therapy discussion with patient about course of treatment and patient instructions. education on serotonin syndrome Discussed and educated pt regarding benzodiazepines are generally not intended for prolonged use and that use can cause tolerance, dependence, depression, and associated memory issues including dementias (this list is not exhaustive). Benzodiazepine use is generally not recommended concurrently with pain medications and/or other controlled substances educated on all medications, benefits, side effects and risk, and educated on depression, anxiety, and ADHD, mood d/o and educated on compliance of medications, metabolic and movement d/o education appointment is, continue therapy discussion with patient about course of treatment and patient instructions. education on serotonin syndrome SSRI/SNRI side effects discussed including but not limited to, gastric upset, nausea, vomiting, diarrhea and/or constipation, weight changes, sexual side effects including loss of libido, increased suicidal thoughts/behavior s in children and young adults, and serotonin syndrome. Medication Management and Follow-Up - Plan: discuss and educated on TMS for OCD- patient is intersted to speak with Dr. Roche - educated about metal in upper jaw and may not qualify - Schedule follow-up appointments every 1-3 months to monitor the patient's response to the medication regimen. - Reinforce the importance of avoiding recreational drug use due to potential neurotoxicity and interactions with prescribed medications. 01/10/2025 ADHD (attention deficit hyperactivity disorder), combined type (ICD-10 - F90.2) Attention Deficit Hyperactivity Disorder (ADHD) in Adults: Care Instructions material was published, Learning About Stimulant Medicines for Attention Deficit Hyperactivity Disorder (ADHD) material was published, Attention Deficit Hyperactivity Disorder (ADHD) in Adults: Care Instructions material was published, Learning About Stimulant Medicines for Attention Deficit Hyperactivity Disorder (ADHD) material was published 1. JOJO disucss and educated on medication options SSRI - for anxiety and OCD Sertraline 50 mg bedtime- improving depression, anxiety and OCD [facility] 2. OCD- Discuss TMS and educated- discuss with Dr. Roche and need to know type metal plate and screws upper jaw before able to do TMS pamplet given discuss having plate and screws upper jaw palate Zoloft 50 mg daily 3. ADHD reviewewd ADHD Creyos testing- Indicative of symptoms that are consistent with ADHD ADHD stimulates education Discuss with patient risk of misuse, abuse, and addiction before prescribing stimulant medicines. Jig Grinder patients not to share their prescribed stimulant with anyone else. Educate patients and their families on these serious risks, proper storage of the medicine, and proper disposal of any unused medicine. Educated patient will monitor Throughout treatment, regularly assess and monitor them for signs and symptoms of nonmedical use, addiction, and potential diversion, which may be evidenced by more frequent renewal. requests than warranted by the prescribed dosage. Random UDS [place] prescription reviewed discuss and educated non stimulate and stimualtes d/c Straterra 40 mg in am- having chest problems, distractingly cold, hands, feet, nose 4. cannbis use - reported NOT uses gummies Recommend decrease/stop cannabis use as it can negatively impact mood, motivation, anxiety, sleep, focus/concentrati on/memory (vigilance, elasticity, processing and attention); can also contribute to development of psychosis. http_s://www.nimh .nih.gov/health/t opics/mental-heal th-medications http_s://www.ellen .org/About-Mental -Illness/Treatmen ts/Mental-Health- Medications Recommend decrease/stop cannabis use as it may be negatively impacting mood, motivation, anxiety, sleep, focus; can also contribute to development of psychosis Cannabis/marijuan a information: http_s://pantera.nih .gov/publications /drugfacts/cannab is-marijuana http_s://www.[employer]/pilo rwb-dis-azqdlkhg- marijuana-adhd/ http_s://www.ellen .org/About-Mental -Illness/Mental-H ealth-Conditions http_s://psychcen tral.com/depressi on/the-cognitive- ctgbaucr-mp-dzssw ssion#treatments http__s://www.nim h.nih.gov/health/ topics/mental-hea [facility]-medications http__s://www.nam i.org/About-Menta l-Illness/Treatme nts/Mental-Health -Medications educated on all medications, benefits, side effects and risk, and educated on depression, anxiety, and ADHD, mood d/o and educated on compliance of medications, metabolic and movement d/o education appointment's, continue therapy discussion with patient about course of treatment and patient instructions. education on serotonin syndrome Discussed and educated pt regarding benzodiazepines are generally not intended for prolonged use and that use can cause tolerance, dependence, depression, and associated memory issues including dementias (this list is not exhaustive). Benzodiazepine use is generally not recommended concurrently with pain medications and/or other controlled substances educated on all medications, benefits, side effects and risk, and educated on depression, anxiety, and ADHD, mood d/o and educated on compliance of medications, metabolic and movement d/o education appointment is, continue therapy discussion with patient about course of treatment and patient instructions. education on serotonin syndrome SSRI/SNRI side effects discussed including but not limited to, gastric upset, nausea, vomiting, diarrhea and/or constipation, weight changes, sexual side effects including loss of libido, increased suicidal thoughts/behavior s in children and young adults, and serotonin syndrome. Medication Management and Follow-Up - Plan: discuss and educated on TMS for OCD- patient is intersted to speak with Dr. Roche - educated about metal in upper jaw and may not qualify - Schedule follow-up appointments every 1-3 months to monitor the patient's response to the medication regimen. - Reinforce the importance of avoiding recreational drug use due to potential neurotoxicity and interactions with prescribed medications. 12/19/2024 ADHD (attention deficit hyperactivity disorder), combined type (ICD-10 - F90.2) Attention Deficit Hyperactivity Disorder (ADHD) in Adults: Care Instructions material was published, Learning About Stimulant Medicines for Attention Deficit Hyperactivity Disorder (ADHD) material was published, Attention Deficit Hyperactivity Disorder (ADHD) in Adults: Care Instructions material was published, Learning About Stimulant Medicines for Attention Deficit Hyperactivity Disorder (ADHD) material was published 1. JOJO disucss and educated on medication options SSRI - for anxiety and OCD Sertraline 50 mg bedtime- improving depression, anxiety and OCD [facility] 2. OCD- Discuss TMS and educated- discuss with Dr. Roche and need to know type metal plate and screws upper jaw before able to do TMS pamplet given discuss having plate and screws upper jaw palate Zoloft 50 mg daily 3. ADHD reviewewd ADHD Creyos testing- Indicative of symptoms that are consistent with ADHD ADHD stimulates education Discuss with patient risk of misuse, abuse, and addiction before prescribing stimulant medicines. Jig Grinder patients not to share their prescribed stimulant with anyone else. Educate patients and their families on these serious risks, proper storage of the medicine, and proper disposal of any unused medicine. Educated patient will monitor Throughout treatment, regularly assess and monitor them for signs and symptoms of nonmedical use, addiction, and potential diversion, which may be evidenced by more frequent renewal. requests than warranted by the prescribed dosage. Random UDS [place] prescription reviewed discuss and educated non stimulate and stimualtes Will add Straterra 25 mg daily in am for 1 week then increase to Straterra 40 mg in am 4. cannbis use - reported NOT uses gummies Recommend decrease/stop cannabis use as it can negatively impact mood, motivation, anxiety, sleep, focus/concentrati on/memory (vigilance, elasticity, processing and attention); can also contribute to development of psychosis. http_s://www.nimh .nih.gov/health/t opics/mental-heal th-medications http_s://www.ellen .org/About-Mental -Illness/Treatmen ts/Mental-Health- Medications Recommend decrease/stop cannabis use as it may be negatively impacting mood, motivation, anxiety, sleep, focus; can also contribute to development of psychosis Cannabis/marijuan a information: http_s://pantera.nih .gov/publications /drugfacts/cannab is-marijuana http_s://www.[employer]/pilo gou-sjw-lqpntsel- marijuana-adhd/ http_s://www.ellen .org/About-Mental -Illness/Mental-H ealth-Conditions http_s://psychcen tral.com/depressi on/the-cognitive- bvvxossw-df-lbbvz ssion#treatments http__s://www.nim .nih.gov/health/ topics/mental-hea lth-medications http__s://www.nam i.org/About-Menta l-Illness/Treatme nts/Mental-Health -Medications educated on all medications, benefits, side effects and risk, and educated on depression, anxiety, and ADHD, mood d/o and educated on compliance of medications, metabolic and movement d/o education appointment's, continue therapy discussion with patient about course of treatment and patient instructions. education on serotonin syndrome Discussed and educated pt regarding benzodiazepines are generally not intended for prolonged use and that use can cause tolerance, dependence, depression, and associated memory issues including dementias (this list is not exhaustive). Benzodiazepine use is generally not recommended concurrently with pain medications and/or other controlled substances educated on all medications, benefits, side effects and risk, and educated on depression, anxiety, and ADHD, mood d/o and educated on compliance of medications, metabolic and movement d/o education appointment is, continue therapy discussion with patient about course of treatment and patient instructions. education on serotonin syndrome SSRI/SNRI side effects discussed including but not limited to, gastric upset, nausea, vomiting, diarrhea and/or constipation, weight changes, sexual side effects including loss of libido, increased suicidal thoughts/behavior s in children and young adults, and serotonin syndrome. Medication Management and Follow-Up - Plan: discuss and educated on TMS for OCD- patient is intersted to speak with Dr. Roche - educated about metal in upper jaw and may not qualify - Schedule follow-up appointments every 1-3 months to monitor the patient's response to the medication regimen. - Reinforce the importance of avoiding recreational drug use due to potential neurotoxicity and interactions with prescribed medications. 01/31/2025 JOJO (generalized anxiety disorder) (ICD-10 - F41.1) Learning About Generalized Anxiety Disorder material was published, Generalized Anxiety Disorder: Care Instructions material was published, Learning About Transcranial Magnetic Stimulation (TMS) material was published, Learning About Anxiety Disorders material was published, Learning About Generalized Anxiety Disorder material was published, Generalized Anxiety Disorder: Care Instructions material was published, Learning About Transcranial Magnetic Stimulation (TMS) material was published 1. JOJO disucss and educated on medication options SSRI - for anxiety and OCD Sertraline 50 mg bedtime- improving depression, anxiety and OCD no refill needed today [facility] 2. OCD- Discuss TMS and educated- discuss with Dr. Roche and need to know type metal plate and screws upper jaw before able to do TMS pamplet given discuss having plate and screws upper jaw palate Zoloft 50 mg daily 3. ADHD reviewewd ADHD Creyos testing- Indicative of symptoms that are consistent with ADHD ADD Wellbutrin XL 150 mg in am discuss and education on all rx ADHD stimulates education Discuss with patient risk of misuse, abuse, and addiction before prescribing stimulant medicines. Jig Grinder patients not to share their prescribed stimulant with anyone else. Educate patients and their families on these serious risks, proper storage of the medicine, and proper disposal of any unused medicine. Educated patient will monitor Throughout treatment, regularly assess and monitor them for signs and symptoms of nonmedical use, addiction, and potential diversion, which may be evidenced by more frequent renewal. requests than warranted by the prescribed dosage. Random UDS [place] prescription reviewed discuss and educated non stimulate and stimualtes HX Straterra 40 mg in am- having chest problems, distractingly cold, hands, feet, nose 4. cannbis use - reported NOT uses gummies Recommend decrease/stop cannabis use as it can negatively impact mood, motivation, anxiety, sleep, focus/concentrati on/memory (vigilance, elasticity, processing and attention); can also contribute to development of psychosis. http_s://www.nimh .nih.gov/health/t opics/mental-heal th-medications http_s://www.ellen .org/About-Mental -Illness/Treatmen ts/Mental-Health- Medications Recommend decrease/stop cannabis use as it may be negatively impacting mood, motivation, anxiety, sleep, focus; can also contribute to development of psychosis Cannabis/marijuan a information: http_s://pantera.nih .gov/publications /drugfacts/cannab is-marijuana http_s://www.[employer]/cannbrandi fwr-ofv-igbsxxqv- marijuana-adhd/ http_s://www.ellen .org/About-Mental -Illness/Mental-H ealth-Conditions http_s://psychcen [employer].com/depressi on/the-cognitive- fiyrkebl-kw-llgjr ssion#treatments http__s://www.nim h.nih.gov/health/ topics/mental-hea lth-medications http__s://www.nam i.org/About-Menta l-Illness/Treatme nts/Mental-Health -Medications educated on all medications, benefits, side effects and risk, and educated on depression, anxiety, and ADHD, mood d/o and educated on compliance of medications, metabolic and movement d/o education appointment's, continue therapy discussion with patient about course of treatment and patient instructions. education on serotonin syndrome Discussed and educated pt regarding benzodiazepines are generally not intended for prolonged use and that use can cause tolerance, dependence, depression, and associated memory issues including dementias (this list is not exhaustive). Benzodiazepine use is generally not recommended concurrently with pain medications and/or other controlled substances educated on all medications, benefits, side effects and risk, and educated on depression, anxiety, and ADHD, mood d/o and educated on compliance of medications, metabolic and movement d/o education appointment is, continue therapy discussion with patient about course of treatment and patient instructions. education on serotonin syndrome SSRI/SNRI side effects discussed including but not limited to, gastric upset, nausea, vomiting, diarrhea and/or constipation, weight changes, sexual side effects including loss of libido, increased suicidal thoughts/behavior s in children and young adults, and serotonin syndrome. Medication Management and Follow-Up - Plan: discuss and educated on TMS for OCD- SPOKE with Dr. Roche - educated about metal in upper jaw and may not qualify- need to know type metal - Schedule follow-up appointments every 1-3 months to monitor the patient's response to the medication regimen. - Reinforce the importance of avoiding recreational drug use due to potential neurotoxicity and interactions with prescribed medications. 02/28/2025 JOJO (generalized anxiety disorder) (ICD-10 - F41.1) Learning About Generalized Anxiety Disorder material was published, Generalized Anxiety Disorder: Care Instructions material was published, Learning About Transcranial Magnetic Stimulation (TMS) material was published, Learning About Anxiety Disorders material was published, Learning About Generalized Anxiety Disorder material was published, Generalized Anxiety Disorder: Care Instructions material was published, Learning About Transcranial Magnetic Stimulation (TMS) material was published 1. JOJO disucss and educated on medication options SSRI - for anxiety and OCD Presently taking Sertraline 50 mg bedtime- reported has internal tremor feeling and r/o Sertraline- patient will see PCP also and refer to neurologist to r/o tremor d/o, hx tremor feeling over 15 years on and off rx PLAN- Decrease Sertraline 25 mg bedtime and monitor tremors feeling monitor depression, anxiety and OCD discuss Gene Sight testing [facility] 2. OCD- Discuss TMS and educated- discuss with Dr. Roche and need to know type metal plate and screws upper jaw before able to do TMS pamplet given discuss having plate and screws upper jaw palate Zoloft 25 mg daily 3. ADHD reviewewd ADHD Creyos testing- Indicative of symptoms that are consistent with ADHD- reported improved at this time patient not taking- will stop Wellbutrin XL 150 mg in am discuss and education on all rx ADHD stimulates education Discuss with patient risk of misuse, abuse, and addiction before prescribing stimulant medicines. Jig Grinder patients not to share their prescribed stimulant with anyone else. Educate patients and their families on these serious risks, proper storage of the medicine, and proper disposal of any unused medicine. Educated patient will monitor Throughout treatment, regularly assess and monitor them for signs and symptoms of nonmedical use, addiction, and potential diversion, which may be evidenced by more frequent renewal. requests than warranted by the prescribed dosage. Random UDS [place] prescription reviewed discuss and educated non stimulate and stimualtes HX Straterra 40 mg in am- having chest problems, distractingly cold, hands, feet, nose 4. cannbis use - reported NOT uses gummies Recommend decrease/stop cannabis use as it can negatively impact mood, motivation, anxiety, sleep, focus/concentrati on/memory (vigilance, elasticity, processing and attention); can also contribute to development of psychosis. http_s://www.nimh .nih.gov/health/t opics/mental-heal th-medications http_s://www.ellen .org/About-Mental -Illness/Treatmen ts/Mental-Health- Medications Recommend decrease/stop cannabis use as it may be negatively impacting mood, motivation, anxiety, sleep, focus; can also contribute to development of psychosis Cannabis/marijuan a information: http_s://pantera.nih .gov/publications /drugfacts/cannab is-marijuana http_s://www.[employer]/pilo tnx-wud-tmshkrjy- marijuana-adhd/ http_s://www.ellen .org/About-Mental -Illness/Mental-H ealth-Conditions http_s://psychcen tral.com/depressi on/the-cognitive- hclhvtmw-im-navab ssion#treatments http__s://www.[facility].nih.gov/health/ topics/mental-hea [facility]-medications http__s://www.nam i.org/About-Menta l-Illness/Treatme nts/Mental-Health -Medications educated on all medications, benefits, side effects and risk, and educated on depression, anxiety, and ADHD, mood d/o and educated on compliance of medications, metabolic and movement d/o education appointment's, continue therapy discussion with patient about course of treatment and patient instructions. education on serotonin syndrome Discussed and educated pt regarding benzodiazepines are generally not intended for prolonged use and that use can cause tolerance, dependence, depression, and associated memory issues including dementias (this list is not exhaustive). Benzodiazepine use is generally not recommended concurrently with pain medications and/or other controlled substances educated on all medications, benefits, side effects and risk, and educated on depression, anxiety, and ADHD, mood d/o and educated on compliance of medications, metabolic and movement d/o education appointment is, continue therapy discussion with patient about course of treatment and patient instructions. education on serotonin syndrome SSRI/SNRI side effects discussed including but not limited to, gastric upset, nausea, vomiting, diarrhea and/or constipation, weight changes, sexual side effects including loss of libido, increased suicidal thoughts/behavior s in children and young adults, and serotonin syndrome. Medication Management and Follow-Up - Plan: discuss and educated on TMS for OCD- SPOKE with Dr. Roche - educated about metal in upper jaw and may not qualify- need to know type metal - Schedule follow-up appointments every 1-3 months to monitor the patient's response to the medication regimen. - Reinforce the importance of avoiding recreational drug use due to potential neurotoxicity and interactions with prescribed medications. 03/28/2025 JOJO (generalized anxiety disorder) (ICD-10 - F41.1) Learning About Generalized Anxiety Disorder material was published, Generalized Anxiety Disorder: Care Instructions material was published, Learning About Transcranial Magnetic Stimulation (TMS) material was published, Learning About Anxiety Disorders material was published, Learning About Generalized Anxiety Disorder material was published, Generalized Anxiety Disorder: Care Instructions material was published, Learning About Transcranial Magnetic Stimulation (TMS) material was published 1. JOJO disucss and educated on medication options SSRI - for anxiety and OCD reported has internal tremor feeling and r/o Sertraline- patient will see PCP also and refer to neurologist to r/o tremor d/o, hx tremor feeling over 15 years on and off rx- schedule PCP and will be refer to neurologist r/o tremor PLAN- Sertraline 25 mg bedtime monitor tremors feeling- improved with lower dose monitor depression, anxiety and OCD discuss Gene Sight testing [facility] 2. OCD- Discuss TMS and educated- discuss with Dr. Roche and need to know type metal plate and screws upper jaw before able to do TMS pamplet given discuss having plate and screws upper jaw palate Zoloft 25 mg daily 3. ADHD reviewewd ADHD Creyos testing- Indicative of symptoms that are consistent with ADHD- reported improved at this time patient not taking rx schedule to see PCP for refer to Neurologist with tremor ADHD stimulates education Discuss with patient risk of misuse, abuse, and addiction before prescribing stimulant medicines. Jig Grinder patients not to share their prescribed stimulant with anyone else. Educate patients and their families on these serious risks, proper storage of the medicine, and proper disposal of any unused medicine. Educated patient will monitor Throughout treatment, regularly assess and monitor them for signs and symptoms of nonmedical use, addiction, and potential diversion, which may be evidenced by more frequent renewal. requests than warranted by the prescribed dosage. Random UDS [place] prescription reviewed discuss and educated non stimulate and stimualtes HX Straterra 40 mg in am- having chest problems, distractingly cold, hands, feet, nose 4. cannbis use - reported NOT uses gummies Recommend decrease/stop cannabis use as it can negatively impact mood, motivation, anxiety, sleep, focus/concentrati on/memory (vigilance, elasticity, processing and attention); can also contribute to development of psychosis. http_s://www.nimh .nih.gov/health/t opics/mental-heal th-medications http_s://www.ellen .org/About-Mental -Illness/Treatmen ts/Mental-Health- Medications Recommend decrease/stop cannabis use as it may be negatively impacting mood, motivation, anxiety, sleep, focus; can also contribute to development of psychosis Cannabis/marijuan a information: http_s://pantera.nih .gov/publications /drugfacts/cannab is-marijuana http_s://www.[employer]/pilo fjw-tnb-baeunldr- marijuana-adhd/ http_s://www.ellen .org/About-Mental -Illness/Mental-H ealth-Conditions http_s://psychcen tral.com/depressi on/the-cognitive- gvajxflc-mb-niwxj ssion#treatments http__s://www.[facility].nih.gov/health/ topics/mental-hea [facility]-medications http__s://www.nam i.org/About-Menta l-Illness/Treatme nts/Mental-Health -Medications educated on all medications, benefits, side effects and risk, and educated on depression, anxiety, and ADHD, mood d/o and educated on compliance of medications, metabolic and movement d/o education appointment's, continue therapy discussion with patient about course of treatment and patient instructions. education on serotonin syndrome Discussed and educated pt regarding benzodiazepines are generally not intended for prolonged use and that use can cause tolerance, dependence, depression, and associated memory issues including dementias (this list is not exhaustive). Benzodiazepine use is generally not recommended concurrently with pain medications and/or other controlled substances educated on all medications, benefits, side effects and risk, and educated on depression, anxiety, and ADHD, mood d/o and educated on compliance of medications, metabolic and movement d/o education appointment is, continue therapy discussion with patient about course of treatment and patient instructions. education on serotonin syndrome SSRI/SNRI side effects discussed including but not limited to, gastric upset, nausea, vomiting, diarrhea and/or constipation, weight changes, sexual side effects including loss of libido, increased suicidal thoughts/behavior s in children and young adults, and serotonin syndrome. Medication Management and Follow-Up - Plan: discuss and educated on TMS for OCD- SPOKE with Dr. Roche - educated about metal in upper jaw and may not qualify- need to know type metal - Schedule follow-up appointments every 1-3 months to monitor the patient's response to the medication regimen. - Reinforce the importance of avoiding recreational drug use due to potential neurotoxicity and interactions with prescribed medications. 03/28/2025 Mixed obsessional thoughts and acts (ICD-10 - F42.2) Obsessive-Compu lsive Disorder: Care Instructions material was published, Obsessive-Compu lsive Disorder: Care Instructions material was published 1. JOJO disucss and educated on medication options SSRI - for anxiety and OCD reported has internal tremor feeling and r/o Sertraline- patient will see PCP also and refer to neurologist to r/o tremor d/o, hx tremor feeling over 15 years on and off rx- schedule PCP and will be refer to neurologist r/o tremor PLAN- Sertraline 25 mg bedtime monitor tremors feeling- improved with lower dose monitor depression, anxiety and OCD discuss Gene Sight testing [facility] 2. OCD- Discuss TMS and educated- discuss with Dr. Roche and need to know type metal plate and screws upper jaw before able to do TMS pamplet given discuss having plate and screws upper jaw palate Zoloft 25 mg daily 3. ADHD reviewewd ADHD Creyos testing- Indicative of symptoms that are consistent with ADHD- reported improved at this time patient not taking rx schedule to see PCP for refer to Neurologist with tremor ADHD stimulates education Discuss with patient risk of misuse, abuse, and addiction before prescribing stimulant medicines. Jig Grinder patients not to share their prescribed stimulant with anyone else. Educate patients and their families on these serious risks, proper storage of the medicine, and proper disposal of any unused medicine. Educated patient will monitor Throughout treatment, regularly assess and monitor them for signs and symptoms of nonmedical use, addiction, and potential diversion, which may be evidenced by more frequent renewal. requests than warranted by the prescribed dosage. Random UDS [place] prescription reviewed discuss and educated non stimulate and stimualtes HX Straterra 40 mg in am- having chest problems, distractingly cold, hands, feet, nose 4. cannbis use - reported NOT uses gummies Recommend decrease/stop cannabis use as it can negatively impact mood, motivation, anxiety, sleep, focus/concentrati on/memory (vigilance, elasticity, processing and attention); can also contribute to development of psychosis. http_s://www.nimh .nih.gov/health/t opics/mental-heal th-medications http_s://www.ellen .org/About-Mental -Illness/Treatmen ts/Mental-Health- Medications Recommend decrease/stop cannabis use as it may be negatively impacting mood, motivation, anxiety, sleep, focus; can also contribute to development of psychosis Cannabis/marijuan a information: http_s://pantera.nih .gov/publications /drugfacts/cannab is-marijuana http_s://www.[employer]/canna tct-pbs-riniuyyy- marijuana-adhd/ http_s://www.ellen .org/About-Mental -Illness/Mental-H ealth-Conditions http_s://psychcen [employer].com/depressi on/the-cognitive- lbaaiqep-ia-ijnoe ssion#treatments http__s://www.nim .nih.gov/health/ topics/mental-hea lth-medications http__s://www.nam i.org/About-Menta l-Illness/Treatme nts/Mental-Health -Medications educated on all medications, benefits, side effects and risk, and educated on depression, anxiety, and ADHD, mood d/o and educated on compliance of medications, metabolic and movement d/o education appointment's, continue therapy discussion with patient about course of treatment and patient instructions. education on serotonin syndrome Discussed and educated pt regarding benzodiazepines are generally not intended for prolonged use and that use can cause tolerance, dependence, depression, and associated memory issues including dementias (this list is not exhaustive). Benzodiazepine use is generally not recommended concurrently with pain medications and/or other controlled substances educated on all medications, benefits, side effects and risk, and educated on depression, anxiety, and ADHD, mood d/o and educated on compliance of medications, metabolic and movement d/o education appointment is, continue therapy discussion with patient about course of treatment and patient instructions. education on serotonin syndrome SSRI/SNRI side effects discussed including but not limited to, gastric upset, nausea, vomiting, diarrhea and/or constipation, weight changes, sexual side effects including loss of libido, increased suicidal thoughts/behavior s in children and young adults, and serotonin syndrome. Medication Management and Follow-Up - Plan: discuss and educated on TMS for OCD- SPOKE with Dr. Roche - educated about metal in upper jaw and may not qualify- need to know type metal - Schedule follow-up appointments every 1-3 months to monitor the patient's response to the medication regimen. - Reinforce the importance of avoiding recreational drug use due to potential neurotoxicity and interactions with prescribed medications. 02/28/2025 Mixed obsessional thoughts and acts (ICD-10 - F42.2) Obsessive-Compu lsive Disorder: Care Instructions material was published, Obsessive-Compu lsive Disorder: Care Instructions material was published 1. JOJO disucss and educated on medication options SSRI - for anxiety and OCD Presently taking Sertraline 50 mg bedtime- reported has internal tremor feeling and r/o Sertraline- patient will see PCP also and refer to neurologist to r/o tremor d/o, hx tremor feeling over 15 years on and off rx PLAN- Decrease Sertraline 25 mg bedtime and monitor tremors feeling monitor depression, anxiety and OCD discuss Gene Sight testing [facility] 2. OCD- Discuss TMS and educated- discuss with Dr. Roche and need to know type metal plate and screws upper jaw before able to do TMS pamplet given discuss having plate and screws upper jaw palate Zoloft 25 mg daily 3. ADHD reviewewd ADHD Creyos testing- Indicative of symptoms that are consistent with ADHD- reported improved at this time patient not taking- will stop Wellbutrin XL 150 mg in am discuss and education on all rx ADHD stimulates education Discuss with patient risk of misuse, abuse, and addiction before prescribing stimulant medicines. Jig Grinder patients not to share their prescribed stimulant with anyone else. Educate patients and their families on these serious risks, proper storage of the medicine, and proper disposal of any unused medicine. Educated patient will monitor Throughout treatment, regularly assess and monitor them for signs and symptoms of nonmedical use, addiction, and potential diversion, which may be evidenced by more frequent renewal. requests than warranted by the prescribed dosage. Random UDS [place] prescription reviewed discuss and educated non stimulate and stimualtes HX Straterra 40 mg in am- having chest problems, distractingly cold, hands, feet, nose 4. cannbis use - reported NOT uses gummies Recommend decrease/stop cannabis use as it can negatively impact mood, motivation, anxiety, sleep, focus/concentrati on/memory (vigilance, elasticity, processing and attention); can also contribute to development of psychosis. http_s://www.nimh .nih.gov/health/t opics/mental-heal th-medications http_s://www.ellen .org/About-Mental -Illness/Treatmen ts/Mental-Health- Medications Recommend decrease/stop cannabis use as it may be negatively impacting mood, motivation, anxiety, sleep, focus; can also contribute to development of psychosis Cannabis/marijuan a information: http_s://pantera.nih .gov/publications /drugfacts/cannab is-marijuana http_s://www.[employer]/nallelybrandi bxx-vla-ttssmpzc- marijuana-adhd/ http_s://www.ellen .org/About-Mental -Illness/Mental-H ealth-Conditions http_s://psychcen [employer].com/depressi on/the-cognitive- reosmfxm-zz-tqwvv ssion#treatments http__s://www.[facility].nih.gov/health/ topics/mental-hea lth-medications http__s://www.nam i.org/About-Menta l-Illness/Treatme nts/Mental-Health -Medications educated on all medications, benefits, side effects and risk, and educated on depression, anxiety, and ADHD, mood d/o and educated on compliance of medications, metabolic and movement d/o education appointment's, continue therapy discussion with patient about course of treatment and patient instructions. education on serotonin syndrome Discussed and educated pt regarding benzodiazepines are generally not intended for prolonged use and that use can cause tolerance, dependence, depression, and associated memory issues including dementias (this list is not exhaustive). Benzodiazepine use is generally not recommended concurrently with pain medications and/or other controlled substances educated on all medications, benefits, side effects and risk, and educated on depression, anxiety, and ADHD, mood d/o and educated on compliance of medications, metabolic and movement d/o education appointment is, continue therapy discussion with patient about course of treatment and patient instructions. education on serotonin syndrome SSRI/SNRI side effects discussed including but not limited to, gastric upset, nausea, vomiting, diarrhea and/or constipation, weight changes, sexual side effects including loss of libido, increased suicidal thoughts/behavior s in children and young adults, and serotonin syndrome. Medication Management and Follow-Up - Plan: discuss and educated on TMS for OCD- SPOKE with Dr. Roche - educated about metal in upper jaw and may not qualify- need to know type metal - Schedule follow-up appointments every 1-3 months to monitor the patient's response to the medication regimen. - Reinforce the importance of avoiding recreational drug use due to potential neurotoxicity and interactions with prescribed medications. 01/31/2025 Mixed obsessional thoughts and acts (ICD-10 - F42.2) Obsessive-Compu lsive Disorder: Care Instructions material was published, Obsessive-Compu lsive Disorder: Care Instructions material was published 1. JOJO disucss and educated on medication options SSRI - for anxiety and OCD Sertraline 50 mg bedtime- improving depression, anxiety and OCD no refill needed today [facility] 2. OCD- Discuss TMS and educated- discuss with Dr. Roche and need to know type metal plate and screws upper jaw before able to do TMS pamplet given discuss having plate and screws upper jaw palate Zoloft 50 mg daily 3. ADHD reviewewd ADHD Creyos testing- Indicative of symptoms that are consistent with ADHD ADD Wellbutrin XL 150 mg in am discuss and education on all rx ADHD stimulates education Discuss with patient risk of misuse, abuse, and addiction before prescribing stimulant medicines. Jig Grinder patients not to share their prescribed stimulant with anyone else. Educate patients and their families on these serious risks, proper storage of the medicine, and proper disposal of any unused medicine. Educated patient will monitor Throughout treatment, regularly assess and monitor them for signs and symptoms of nonmedical use, addiction, and potential diversion, which may be evidenced by more frequent renewal. requests than warranted by the prescribed dosage. Random UDS [place] prescription reviewed discuss and educated non stimulate and stimualtes HX Straterra 40 mg in am- having chest problems, distractingly cold, hands, feet, nose 4. cannbis use - reported NOT uses gummies Recommend decrease/stop cannabis use as it can negatively impact mood, motivation, anxiety, sleep, focus/concentrati on/memory (vigilance, elasticity, processing and attention); can also contribute to development of psychosis. http_s://www.nimh .nih.gov/health/t opics/mental-heal th-medications http_s://www.ellen .org/About-Mental -Illness/Treatmen ts/Mental-Health- Medications Recommend decrease/stop cannabis use as it may be negatively impacting mood, motivation, anxiety, sleep, focus; can also contribute to development of psychosis Cannabis/marijuan a information: http_s://pantera.nih .gov/publications /drugfacts/cannab is-marijuana http_s://www.[employer]/pilo jgj-hvf-azuowwdk- marijuana-adhd/ http_s://www.ellen .org/About-Mental -Illness/Mental-H ealth-Conditions http_s://psychcen tral.com/depressi on/the-cognitive- idsblrfp-qy-yctkg ssion#treatments http__s://www.nim h.nih.gov/health/ topics/mental-hea [facility]-medications http__s://www.nam i.org/About-Menta l-Illness/Treatme nts/Mental-Health -Medications educated on all medications, benefits, side effects and risk, and educated on depression, anxiety, and ADHD, mood d/o and educated on compliance of medications, metabolic and movement d/o education appointment's, continue therapy discussion with patient about course of treatment and patient instructions. education on serotonin syndrome Discussed and educated pt regarding benzodiazepines are generally not intended for prolonged use and that use can cause tolerance, dependence, depression, and associated memory issues including dementias (this list is not exhaustive). Benzodiazepine use is generally not recommended concurrently with pain medications and/or other controlled substances educated on all medications, benefits, side effects and risk, and educated on depression, anxiety, and ADHD, mood d/o and educated on compliance of medications, metabolic and movement d/o education appointment is, continue therapy discussion with patient about course of treatment and patient instructions. education on serotonin syndrome SSRI/SNRI side effects discussed including but not limited to, gastric upset, nausea, vomiting, diarrhea and/or constipation, weight changes, sexual side effects including loss of libido, increased suicidal thoughts/behavior s in children and young adults, and serotonin syndrome. Medication Management and Follow-Up - Plan: discuss and educated on TMS for OCD- SPOKE with Dr. Roche - educated about metal in upper jaw and may not qualify- need to know type metal - Schedule follow-up appointments every 1-3 months to monitor the patient's response to the medication regimen. - Reinforce the importance of avoiding recreational drug use due to potential neurotoxicity and interactions with prescribed medications. 01/31/2025 ADHD (attention deficit hyperactivity disorder), combined type (ICD-10 - F90.2) Attention Deficit Hyperactivity Disorder (ADHD) in Adults: Care Instructions material was published, Learning About Stimulant Medicines for Attention Deficit Hyperactivity Disorder (ADHD) material was published, Attention Deficit Hyperactivity Disorder (ADHD) in Adults: Care Instructions material was published, Learning About Stimulant Medicines for Attention Deficit Hyperactivity Disorder (ADHD) material was published 1. JOJO disucss and educated on medication options SSRI - for anxiety and OCD Sertraline 50 mg bedtime- improving depression, anxiety and OCD no refill needed today [facility] 2. OCD- Discuss TMS and educated- discuss with Dr. Roche and need to know type metal plate and screws upper jaw before able to do TMS pamplet given discuss having plate and screws upper jaw palate Zoloft 50 mg daily 3. ADHD reviewewd ADHD Creyos testing- Indicative of symptoms that are consistent with ADHD ADD Wellbutrin XL 150 mg in am discuss and education on all rx ADHD stimulates education Discuss with patient risk of misuse, abuse, and addiction before prescribing stimulant medicines. Jig Grinder patients not to share their prescribed stimulant with anyone else. Educate patients and their families on these serious risks, proper storage of the medicine, and proper disposal of any unused medicine. Educated patient will monitor Throughout treatment, regularly assess and monitor them for signs and symptoms of nonmedical use, addiction, and potential diversion, which may be evidenced by more frequent renewal. requests than warranted by the prescribed dosage. Random UDS [place] prescription reviewed discuss and educated non stimulate and stimualtes HX Straterra 40 mg in am- having chest problems, distractingly cold, hands, feet, nose 4. cannbis use - reported NOT uses gummies Recommend decrease/stop cannabis use as it can negatively impact mood, motivation, anxiety, sleep, focus/concentrati on/memory (vigilance, elasticity, processing and attention); can also contribute to development of psychosis. http_s://www.nimh .nih.gov/health/t opics/mental-heal th-medications http_s://www.ellen .org/About-Mental -Illness/Treatmen ts/Mental-Health- Medications Recommend decrease/stop cannabis use as it may be negatively impacting mood, motivation, anxiety, sleep, focus; can also contribute to development of psychosis Cannabis/marijuan a information: http_s://pantera.nih .gov/publications /drugfacts/cannab is-marijuana http_s://www.[employer]/pilo ckg-xed-nthpkkkz- marijuana-adhd/ http_s://www.ellen .org/About-Mental -Illness/Mental-H ealth-Conditions http_s://psychcen tral.com/depressi on/the-cognitive- hjeadure-dq-iaupo ssion#treatments http__s://www.[facility].nih.gov/health/ topics/mental-hea [facility]-medications http__s://www.nam i.org/About-Menta l-Illness/Treatme nts/Mental-Health -Medications educated on all medications, benefits, side effects and risk, and educated on depression, anxiety, and ADHD, mood d/o and educated on compliance of medications, metabolic and movement d/o education appointment's, continue therapy discussion with patient about course of treatment and patient instructions. education on serotonin syndrome Discussed and educated pt regarding benzodiazepines are generally not intended for prolonged use and that use can cause tolerance, dependence, depression, and associated memory issues including dementias (this list is not exhaustive). Benzodiazepine use is generally not recommended concurrently with pain medications and/or other controlled substances educated on all medications, benefits, side effects and risk, and educated on depression, anxiety, and ADHD, mood d/o and educated on compliance of medications, metabolic and movement d/o education appointment is, continue therapy discussion with patient about course of treatment and patient instructions. education on serotonin syndrome SSRI/SNRI side effects discussed including but not limited to, gastric upset, nausea, vomiting, diarrhea and/or constipation, weight changes, sexual side effects including loss of libido, increased suicidal thoughts/behavior s in children and young adults, and serotonin syndrome. Medication Management and Follow-Up - Plan: discuss and educated on TMS for OCD- SPOKE with Dr. Roche - educated about metal in upper jaw and may not qualify- need to know type metal - Schedule follow-up appointments every 1-3 months to monitor the patient's response to the medication regimen. - Reinforce the importance of avoiding recreational drug use due to potential neurotoxicity and interactions with prescribed medications. 02/28/2025 ADHD (attention deficit hyperactivity disorder), combined type (ICD-10 - F90.2) Attention Deficit Hyperactivity Disorder (ADHD) in Adults: Care Instructions material was published, Learning About Stimulant Medicines for Attention Deficit Hyperactivity Disorder (ADHD) material was published, Attention Deficit Hyperactivity Disorder (ADHD) in Adults: Care Instructions material was published, Learning About Stimulant Medicines for Attention Deficit Hyperactivity Disorder (ADHD) material was published 1. JOJO disucss and educated on medication options SSRI - for anxiety and OCD Presently taking Sertraline 50 mg bedtime- reported has internal tremor feeling and r/o Sertraline- patient will see PCP also and refer to neurologist to r/o tremor d/o, hx tremor feeling over 15 years on and off rx PLAN- Decrease Sertraline 25 mg bedtime and monitor tremors feeling monitor depression, anxiety and OCD discuss Gene Sight testing [facility] 2. OCD- Discuss TMS and educated- discuss with Dr. Roche and need to know type metal plate and screws upper jaw before able to do TMS pamplet given discuss having plate and screws upper jaw palate Zoloft 25 mg daily 3. ADHD reviewewd ADHD Creyos testing- Indicative of symptoms that are consistent with ADHD- reported improved at this time patient not taking- will stop Wellbutrin XL 150 mg in am discuss and education on all rx ADHD stimulates education Discuss with patient risk of misuse, abuse, and addiction before prescribing stimulant medicines. Jig Grinder patients not to share their prescribed stimulant with anyone else. Educate patients and their families on these serious risks, proper storage of the medicine, and proper disposal of any unused medicine. Educated patient will monitor Throughout treatment, regularly assess and monitor them for signs and symptoms of nonmedical use, addiction, and potential diversion, which may be evidenced by more frequent renewal. requests than warranted by the prescribed dosage. Random UDS [place] prescription reviewed discuss and educated non stimulate and stimualtes HX Straterra 40 mg in am- having chest problems, distractingly cold, hands, feet, nose 4. cannbis use - reported NOT uses gummies Recommend decrease/stop cannabis use as it can negatively impact mood, motivation, anxiety, sleep, focus/concentrati on/memory (vigilance, elasticity, processing and attention); can also contribute to development of psychosis. http_s://www.nimh .nih.gov/health/t opics/mental-heal th-medications http_s://www.ellen .org/About-Mental -Illness/Treatmen ts/Mental-Health- Medications Recommend decrease/stop cannabis use as it may be negatively impacting mood, motivation, anxiety, sleep, focus; can also contribute to development of psychosis Cannabis/marijuan a information: http_s://pantera.nih .gov/publications /drugfacts/cannab is-marijuana http_s://www.[employer]/pilo esl-mil-ucpqwjft- marijuana-adhd/ http_s://www.ellen .org/About-Mental -Illness/Mental-H ealth-Conditions http_s://psychcen [employer].com/depressi on/the-cognitive- nutjcspl-ke-thwpt ssion#treatments http__s://www.nim .nih.gov/health/ topics/mental-hea [facility]-medications http__s://www.nam i.org/About-Menta l-Illness/Treatme nts/Mental-Health -Medications educated on all medications, benefits, side effects and risk, and educated on depression, anxiety, and ADHD, mood d/o and educated on compliance of medications, metabolic and movement d/o education appointment's, continue therapy discussion with patient about course of treatment and patient instructions. education on serotonin syndrome Discussed and educated pt regarding benzodiazepines are generally not intended for prolonged use and that use can cause tolerance, dependence, depression, and associated memory issues including dementias (this list is not exhaustive). Benzodiazepine use is generally not recommended concurrently with pain medications and/or other controlled substances educated on all medications, benefits, side effects and risk, and educated on depression, anxiety, and ADHD, mood d/o and educated on compliance of medications, metabolic and movement d/o education appointment is, continue therapy discussion with patient about course of treatment and patient instructions. education on serotonin syndrome SSRI/SNRI side effects discussed including but not limited to, gastric upset, nausea, vomiting, diarrhea and/or constipation, weight changes, sexual side effects including loss of libido, increased suicidal thoughts/behavior s in children and young adults, and serotonin syndrome. Medication Management and Follow-Up - Plan: discuss and educated on TMS for OCD- SPOKE with Dr. Roche - educated about metal in upper jaw and may not qualify- need to know type metal - Schedule follow-up appointments every 1-3 months to monitor the patient's response to the medication regimen. - Reinforce the importance of avoiding recreational drug use due to potential neurotoxicity and interactions with prescribed medications. 03/28/2025 ADHD (attention deficit hyperactivity disorder), combined type (ICD-10 - F90.2) Attention Deficit Hyperactivity Disorder (ADHD) in Adults: Care Instructions material was published, Learning About Stimulant Medicines for Attention Deficit Hyperactivity Disorder (ADHD) material was published, Attention Deficit Hyperactivity Disorder (ADHD) in Adults: Care Instructions material was published, Learning About Stimulant Medicines for Attention Deficit Hyperactivity Disorder (ADHD) material was published 1. JOJO disucss and educated on medication options SSRI - for anxiety and OCD reported has internal tremor feeling and r/o Sertraline- patient will see PCP also and refer to neurologist to r/o tremor d/o, hx tremor feeling over 15 years on and off rx- schedule PCP and will be refer to neurologist r/o tremor PLAN- Sertraline 25 mg bedtime monitor tremors feeling- improved with lower dose monitor depression, anxiety and OCD discuss Gene Sight testing [facility] 2. OCD- Discuss TMS and educated- discuss with Dr. Roche and need to know type metal plate and screws upper jaw before able to do TMS pamplet given discuss having plate and screws upper jaw palate Zoloft 25 mg daily 3. ADHD reviewewd ADHD Creyos testing- Indicative of symptoms that are consistent with ADHD- reported improved at this time patient not taking rx schedule to see PCP for refer to Neurologist with tremor ADHD stimulates education Discuss with patient risk of misuse, abuse, and addiction before prescribing stimulant medicines. Jig Grinder patients not to share their prescribed stimulant with anyone else. Educate patients and their families on these serious risks, proper storage of the medicine, and proper disposal of any unused medicine. Educated patient will monitor Throughout treatment, regularly assess and monitor them for signs and symptoms of nonmedical use, addiction, and potential diversion, which may be evidenced by more frequent renewal. requests than warranted by the prescribed dosage. Random UDS [place] prescription reviewed discuss and educated non stimulate and stimualtes HX Straterra 40 mg in am- having chest problems, distractingly cold, hands, feet, nose 4. cannbis use - reported NOT uses gummies Recommend decrease/stop cannabis use as it can negatively impact mood, motivation, anxiety, sleep, focus/concentrati on/memory (vigilance, elasticity, processing and attention); can also contribute to development of psychosis. http_s://www.nimh .nih.gov/health/t opics/mental-heal th-medications http_s://www.ellen .org/About-Mental -Illness/Treatmen ts/Mental-Health- Medications Recommend decrease/stop cannabis use as it may be negatively impacting mood, motivation, anxiety, sleep, focus; can also contribute to development of psychosis Cannabis/marijuan a information: http_s://pantera.nih .gov/publications /drugfacts/cannab is-marijuana http_s://www.[employer]/canna rjt-ges-ldqrtfgn- marijuana-adhd/ http_s://www.ellen .org/About-Mental -Illness/Mental-H ealth-Conditions http_s://psychcen [employer].com/depressi on/the-cognitive- yjhhgmct-jc-zzbra ssion#treatments http__s://www.[facility].nih.gov/health/ topics/mental-hea lth-medications http__s://www.nam i.org/About-Menta l-Illness/Treatme nts/Mental-Health -Medications educated on all medications, benefits, side effects and risk, and educated on depression, anxiety, and ADHD, mood d/o and educated on compliance of medications, metabolic and movement d/o education appointment's, continue therapy discussion with patient about course of treatment and patient instructions. education on serotonin syndrome Discussed and educated pt regarding benzodiazepines are generally not intended for prolonged use and that use can cause tolerance, dependence, depression, and associated memory issues including dementias (this list is not exhaustive). Benzodiazepine use is generally not recommended concurrently with pain medications and/or other controlled substances educated on all medications, benefits, side effects and risk, and educated on depression, anxiety, and ADHD, mood d/o and educated on compliance of medications, metabolic and movement d/o education appointment is, continue therapy discussion with patient about course of treatment and patient instructions. education on serotonin syndrome SSRI/SNRI side effects discussed including but not limited to, gastric upset, nausea, vomiting, diarrhea and/or constipation, weight changes, sexual side effects including loss of libido, increased suicidal thoughts/behavior s in children and young adults, and serotonin syndrome. Medication Management and Follow-Up - Plan: discuss and educated on TMS for OCD- SPOKE with Dr. Roche - educated about metal in upper jaw and may not qualify- need to know type metal - Schedule follow-up appointments every 1-3 months to monitor the patient's response to the medication regimen. - Reinforce the importance of avoiding recreational drug use due to potential neurotoxicity and interactions with prescribed medications. 03/28/2025 Negative depression screening (ICD-10 - Z13.31) 1. JOJO disucss and educated on medication options SSRI - for anxiety and OCD reported has internal tremor feeling and r/o Sertraline- patient will see PCP also and refer to neurologist to r/o tremor d/o, hx tremor feeling over 15 years on and off rx- schedule PCP and will be refer to neurologist r/o tremor PLAN- Sertraline 25 mg bedtime monitor tremors feeling- improved with lower dose monitor depression, anxiety and OCD discuss Gene Sight testing [facility] 2. OCD- Discuss TMS and educated- discuss with Dr. Roche and need to know type metal plate and screws upper jaw before able to do TMS pamplet given discuss having plate and screws upper jaw palate Zoloft 25 mg daily 3. ADHD reviewewd ADHD Creyos testing- Indicative of symptoms that are consistent with ADHD- reported improved at this time patient not taking rx schedule to see PCP for refer to Neurologist with tremor ADHD stimulates education Discuss with patient risk of misuse, abuse, and addiction before prescribing stimulant medicines. Jig Grinder patients not to share their prescribed stimulant with anyone else. Educate patients and their families on these serious risks, proper storage of the medicine, and proper disposal of any unused medicine. Educated patient will monitor Throughout treatment, regularly assess and monitor them for signs and symptoms of nonmedical use, addiction, and potential diversion, which may be evidenced by more frequent renewal. requests than warranted by the prescribed dosage. Random UDS [place] prescription reviewed discuss and educated non stimulate and stimualtes HX Straterra 40 mg in am- having chest problems, distractingly cold, hands, feet, nose 4. cannbis use - reported NOT uses gummies Recommend decrease/stop cannabis use as it can negatively impact mood, motivation, anxiety, sleep, focus/concentrati on/memory (vigilance, elasticity, processing and attention); can also contribute to development of psychosis. http_s://www.nimh .nih.gov/health/t opics/mental-heal th-medications http_s://www.ellen .org/About-Mental -Illness/Treatmen ts/Mental-Health- Medications Recommend decrease/stop cannabis use as it may be negatively impacting mood, motivation, anxiety, sleep, focus; can also contribute to development of psychosis Cannabis/marijuan a information: http_s://pantera.nih .gov/publications /drugfacts/cannab is-marijuana http_s://www.[employer]/canna guj-dmr-mlfegmdo- marijuana-adhd/ http_s://www.ellen .org/About-Mental -Illness/Mental-H ealth-Conditions http_s://psychMultimedia Plus | [employer]/depressi on/the-cognitive- nrolugid-yc-fvpph ssion#treatments http__s://www.[facility].nih.gov/health/ topics/mental-hea lt-medications http__s://www.nam i.org/About-Menta l-Illness/Treatme nts/Mental-Health -Medications educated on all medications, benefits, side effects and risk, and educated on depression, anxiety, and ADHD, mood d/o and educated on compliance of medications, metabolic and movement d/o education appointment's, continue therapy discussion with patient about course of treatment and patient instructions. education on serotonin syndrome Discussed and educated pt regarding benzodiazepines are generally not intended for prolonged use and that use can cause tolerance, dependence, depression, and associated memory issues including dementias (this list is not exhaustive). Benzodiazepine use is generally not recommended concurrently with pain medications and/or other controlled substances educated on all medications, benefits, side effects and risk, and educated on depression, anxiety, and ADHD, mood d/o and educated on compliance of medications, metabolic and movement d/o education appointment is, continue therapy discussion with patient about course of treatment and patient instructions. education on serotonin syndrome SSRI/SNRI side effects discussed including but not limited to, gastric upset, nausea, vomiting, diarrhea and/or constipation, weight changes, sexual side effects including loss of libido, increased suicidal thoughts/behavior s in children and young adults, and serotonin syndrome. Medication Management and Follow-Up - Plan: discuss and educated on TMS for OCD- SPOKE with Dr. Roche - educated about metal in upper jaw and may not qualify- need to know type metal - Schedule follow-up appointments every 1-3 months to monitor the patient's response to the medication regimen. - Reinforce the importance of avoiding recreational drug use due to potential neurotoxicity and interactions with prescribed medications. 12/09/2024 Other Learning About Depression Screening material was printed, Sertraline Oral Tablet (SERTRALINE - ORAL) material was published 1. JOJO disucss and educated on medication options SSRI - for anxiety and OCD Add Sertraline 50 mg daily, 2. OCD- Discuss TMS and educated pamplet given discuss having plate and screws upper jaw palate Zoloft 50 mg daily 3. ADHD schedule ADHD testing 4. cannbis use - reported uses gummies 1x month Recommend decrease/stop cannabis use as it can negatively impact mood, motivation, anxiety, sleep, focus/concentrati on/memory (vigilance, elasticity, processing and attention); can also contribute to development of psychosis. http_s://www.nimh .nih.gov/health/t opics/mental-heal th-medications http_s://www.ellen .org/About-Mental -Illness/Treatmen ts/Mental-Health- Medications Recommend decrease/stop cannabis use as it may be negatively impacting mood, motivation, anxiety, sleep, focus; can also contribute to development of psychosis Cannabis/marijuan a information: http_s://pantera.nih .gov/publications /drugfacts/cannab is-marijuana http_s://www.[employer]/cannbrandi aem-gkz-zubgltry- marijuana-adhd/ http_s://www.ellen .org/About-Mental -Illness/Mental-H ealth-Conditions http_s://[employer]/depressi on/the-cognitive- ttnopara-km-etllm ssion#treatments http__s://www.[facility].nih.gov/health/ topics/mental-hea lth-medications http__s://www.nam i.org/About-Menta l-Illness/Treatme nts/Mental-Health -Medications educated on all medications, benefits, side effects and risk, and educated on depression, anxiety, and ADHD, mood d/o and educated on compliance of medications, metabolic and movement d/o education appointment's, continue therapy discussion with patient about course of treatment and patient instructions. education on serotonin syndrome Discussed and educated pt regarding benzodiazepines are generally not intended for prolonged use and that use can cause tolerance, dependence, depression, and associated memory issues including dementias (this list is not exhaustive). Benzodiazepine use is generally not recommended concurrently with pain medications and/or other controlled substances educated on all medications, benefits, side effects and risk, and educated on depression, anxiety, and ADHD, mood d/o and educated on compliance of medications, metabolic and movement d/o education appointment is, continue therapy discussion with patient about course of treatment and patient instructions. education on serotonin syndrome SSRI/SNRI side effects discussed including but not limited to, gastric upset, nausea, vomiting, diarrhea and/or constipation, weight changes, sexual side effects including loss of libido, increased suicidal thoughts/behavior s in children and young adults, and serotonin syndrome. Medication Management and Follow-Up - Plan: discuss and educated on TMS for OCD- patient is intersted to speak with Dr. Roche - educated about metal in upper jaw and may not qualify - Schedule follow-up appointments every 1-3 months to monitor the patient's response to the medication regimen. - Reinforce the importance of avoiding recreational drug use due to potential neurotoxicity and interactions with prescribed medications. 12/19/2024 Other Sertraline Oral Tablet (SERTRALINE - ORAL) material was published, Atomoxetine Oral Capsule (ATOMOXETINE - ORAL) material was published 1. JOJO disucss and educated on medication options SSRI - for anxiety and OCD Sertraline 50 mg bedtime- improving depression, anxiety and OCD [facility] 2. OCD- Discuss TMS and educated- discuss with Dr. Roche and need to know type metal plate and screws upper jaw before able to do TMS pamplet given discuss having plate and screws upper jaw palate Zoloft 50 mg daily 3. ADHD reviewewd ADHD Creyos testing- Indicative of symptoms that are consistent with ADHD ADHD stimulates education Discuss with patient risk of misuse, abuse, and addiction before prescribing stimulant medicines. Jig Grinder patients not to share their prescribed stimulant with anyone else. Educate patients and their families on these serious risks, proper storage of the medicine, and proper disposal of any unused medicine. Educated patient will monitor Throughout treatment, regularly assess and monitor them for signs and symptoms of nonmedical use, addiction, and potential diversion, which may be evidenced by more frequent renewal. requests than warranted by the prescribed dosage. Random [place] prescription reviewed discuss and educated non stimulate and stimualtes Will add Straterra 25 mg daily in am for 1 week then increase to Straterra 40 mg in am 4. cannbis use - reported NOT uses gummies Recommend decrease/stop cannabis use as it can negatively impact mood, motivation, anxiety, sleep, focus/concentrati on/memory (vigilance, elasticity, processing and attention); can also contribute to development of psychosis. http_s://www.nim .nih.gov/health/t opics/mental-heal th-medications http_s://www.ellen .org/About-Mental -Illness/Treatmen ts/Mental-Health- Medications Recommend decrease/stop cannabis use as it may be negatively impacting mood, motivation, anxiety, sleep, focus; can also contribute to development of psychosis Cannabis/marijuan a information: http_s://pantera.nih .gov/publications /drugfacts/cannab is-marijuana http_s://www.Curb Call/canna uxy-ucr-nmdlejwd- marijuana-adhd/ http_s://www.ellen .org/About-Mental -Illness/Mental-H ealth-Conditions http_s://Senscient/depressi on/the-cognitive- rslnpgnr-vb-uczsr ssion#treatments http__s://www.nim .nih.gov/health/ topics/mental-hea lth-medications http__s://www.nam i.org/About-Menta l-Illness/Treatme nts/Mental-Health -Medications educated on all medications, benefits, side effects and risk, and educated on depression, anxiety, and ADHD, mood d/o and educated on compliance of medications, metabolic and movement d/o education appointment's, continue therapy discussion with patient about course of treatment and patient instructions. education on serotonin syndrome Discussed and educated pt regarding benzodiazepines are generally not intended for prolonged use and that use can cause tolerance, dependence, depression, and associated memory issues including dementias (this list is not exhaustive). Benzodiazepine use is generally not recommended concurrently with pain medications and/or other controlled substances educated on all medications, benefits, side effects and risk, and educated on depression, anxiety, and ADHD, mood d/o and educated on compliance of medications, metabolic and movement d/o education appointment is, continue therapy discussion with patient about course of treatment and patient instructions. education on serotonin syndrome SSRI/SNRI side effects discussed including but not limited to, gastric upset, nausea, vomiting, diarrhea and/or constipation, weight changes, sexual side effects including loss of libido, increased suicidal thoughts/behavior s in children and young adults, and serotonin syndrome. Medication Management and Follow-Up - Plan: discuss and educated on TMS for OCD- patient is intersted to speak with Dr. Roche - educated about metal in upper jaw and may not qualify - Schedule follow-up appointments every 1-3 months to monitor the patient's response to the medication regimen. - Reinforce the importance of avoiding recreational drug use due to potential neurotoxicity and interactions with prescribed medications. Plan Of Treatment Future Test Test Name Order Date ADHD Testing 12/09/2024 Next Appt Details Provider Name:Gabriela Torres , 06/27/2025 09:00:00 AM, [address], [facility], [place], [address], Insurance Providers Payer Name Payer Address Payer Phone Subscriber Number Group Number Insured Name Patient Relationship to Insured Coverage Start Date Coverage End Date [facility] [address] [place] [address] [id number] Jean Engel Self - patient is the insured Medical (General) History Medical History History ICD Code Past Psychiatric History: Anxiety Disord er abdominal aortic aneurysm: No atrial fibrillation: No chronic fatigue syndrome: No essential tremor: No hyperlipidemia: No hypertension: No Parkinson's disease: No restless leg syndrome: Yes stroke: No subdural hematoma: No type 1 diabetes mellitus: No type 2 diabetes mellitus: No vitamin B12 deficiency: No vitamin D deficiency: No Surgical History Surgery Date(Month/Year) liver- donated part 2020 r5vinsc surgery and hx blood transfusion s appendix gall bladder [place] - upper jaw 2008 metal"
--- OUTSIDE RECORDS SUMMARY | 2025-04-25 10:20 | XMS_ITS | Continuity of Care Document ---
Author Organization [facility]. If a dditional information is needed, contact Health Information Management at [phone] Address [address] [place] [address] Phone Care Team Providers Care Police Investigator Name Role Phone Unavailable Unavailable Unavailable Unavailable Unavailable Unavailable Unavailable Unavailable Unavailable Problems Kidney stone Onset:04-Apr-2023 Ramiro Cho R3 DO Allergies and Adverse Reactions Hydrocodone(Allergy) Onset: 04-Apr-2023 Reaction:VOMITING acetaminophen(Allergy) Onset: 04-Apr-2023 Reaction:VOMITING Medications iopamidol;72 MILLILITER INTRAVEN. ONCE Quantity:72 Refills:1 Ramiro Cho R3 DO Start:04-Apr-2023 Status:Discontinued Comments:Pharmacy Medication AdministrationProvider Treatment InstructionsContrast administered by autoinjectorfrom multidose bottle.Provider Administration [id number] Social History Smoking Status Never smoked tobacco Recorded: 04-Apr-2023
--- OUTSIDE RECORDS SUMMARY | 2025-04-25 10:21 | XMS_ITS | Clinical Summary ---
Author Organization [facility] Address [address] [place] [address] Care Team Providers Care Hair Salon Manager Name Role Phone Isela Harding DO Unavailable [phone] No, Physician Primary Care Provider [phone] Allergies Active Allergy Reactions Criticality Noted Date Comments Atomoxetine Unknown 02/09/2025 Ketamine Other (See comments) Low 10/31/2020 visual hallucinations and felt 'trippy' - does not want to have this again. Hydrocodone-Acetamino phen Vomiting Low 10/16/2017 Medications zinc gluconate 30 mg tablet Take 1 tablet by mouth daily Active progesterone (PROMETRIUM) 200 mg capsule Take 1 capsule (200 mg total) by mouth daily Active L.acidop,kaia,lac ,rha-B.lac,maggie (Advanced Probiotic) 625 mg (10 billion cell) capsule Take 2 capsules by mouth daily Active docosahexaenoic acid-epa 120-180 mg capsule Take 950 mg by mouth 2 (two) times a day Active ascorbic acid (VITAMIN C) 500 mg tablet,chewable Take 4 tablet/chew tab (2,000 mg total) by mouth daily Active MULTIVITAMIN ORAL Take by mouth daily Active testosterone (TESTOPEL) 75 mg pellet Inject 112.5 mg under the skin once Active lysine 500 mg tablet Take 1 tablet (500 mg total) by mouth 0 Active rizatriptan (MAXALT) 10 mg tablet TAKE 1 TAB BY MOUTH ONCE NEEDED FOR MIGRAINE (MAX 1 TAB/24 HOURS) 12 tablet 2 Active Additional Information Patient not taking.Reported on 02/09/2025 triamcinolone (KENALOG) 0.1 % creamIndications :Skin Inflammation Apply topically 2 (two) times a day 30 g 4 Active Additional Information Patient not taking.Reported on 02/09/2025 sertraline (ZOLOFT) 50 mg tablet daily Active mupirocin (BACTROBAN) 2 % ointmentIndicati ons:Paronychia of great toe, left Apply topically 3 (three) times a day 22 g 5 Active Active Problems Problem Noted Date Diagnosed Date COVID 08/17/2023 Assessment & Plan (08/17/2023 11:44 AM CDT): She developed COVID on around August 03 she had been traveling to [place] via airplane. Her main complaint at this time is fatigue although she is been feeling better the last few days. She did not lose smell or taste. Appetite is improving. She and I discussed that as long she continues to get improve we will just watch her there is no indication for antiviral or steroid at this time she has no respiratory complaints. She denies shortness of breath she will stay in touch with me if she needs anything we will go from there thank you Abdominal pain 05/08/2020 Assessment & Plan (05/31/2020 2:45 PM CDT): Better Will have G.I. workup end of the month Has seen G.I. Assessment & Plan (05/08/2020 4:02 PM CDT): LLQ No G or R No HSM or masses Add cipro 500 mg bid [address] abdomen and pelvis Needs a colonoscopy Nail fungus 05/08/2020 Assessment & Plan (05/08/2020 4:03 PM CDT): Left great toe Will need oral med After G.I. workup Will check lft Encounters Date Type Department Care Team Description 04/13/2025 10:45 AM CDT Office Visit [facility] [address] [place] [phone] Iesla Harding, DO Encounter for gynecological examination without abnormal finding (Primary Dx); Pelvic and perineal pain 02/20/2025 11:37 AM CDT - 02/20/2025 11:59 PM CDT Hospital Encounter [facility] [address] [place] [address] Screening mammogram, encounter for Discharge Disposition: Discharge to home or self care 02/20/2025 Telephone [facility] [place] [address] [place] [address] Margaret Buck Call Back 02/14/2025 Orders Only [facility] at [address] [address] Rahel Casillas NP Bacteroides fragilis infection (Primary Dx) 02/13/2025 Results Follow-Up [facility] at [address] [address] Ashli Rangel NP Aerobic and anaerobic culture and gram stain Abscess Toe, great, left 02/09/2025 12:09 PM CDT - 02/09/2025 11:59 PM CDT Hospital Encounter [address] [address] Paronychia of great toe, left Discharge Disposition: Discharge to home or self care 02/09/2025 11:45 AM CDT Office Visit [facility] at [address] [address] Rahel Casillas NP Paronychia of great toe, left (Primary Dx) from Last 3 Months Immunizations Immunization Administration Dates Next Due Influenza, Unspecified 09/11/2022(Deferr ed: Patient Refused),08/23/2021(Deferred: Patient Refused),08/23/2020(Deferred: Patient Refused) Tdap 10/29/2018 Surgical History Surgery Date Site/Laterality Comments APPENDECTOMY MYOMECTOMY LIVER DONOR LIVING RELATED BREAST BIOPSY 12/25/2022 Right Medical History Medical History Date Comments Anxiety JOJO Migraine Family History Medical History Relation Name Comments Drug abuse Brother 1 arteriosclerosis Father Stroke Mother Relation Name Status Comments Brother 1 Father Mother Alive Social History Tobacco Use Types Packs/Day Years Used Date Smoking Tobacco: Never Smokeless Tobacco: Never Tobacco Cessation:Counseling Given: Not Answered Alcohol Use Standard Drinks/Week Comments Yes 2 (1 standard drink = 0.6 oz pur e alcohol) socially AUDIT-C Answer Date Recorded Q1: How often do you have a drink containing alc ohol? 2-4 times a month 08/17/2023 Q2: How many drinks containi ng alcohol do you have on a typical day when you are drinking? 1 or 2 08/17/2023 Frequency of Binge Drinking Not on file 07/25 PHQ-2 Answer Date Recorded PHQ-2 Total Score (If total score is 3 or more points, staff should administer the PHQ-9) 0 09/03/2022 Comments No Sex and Gender Information Value Date Recorded Sex Assigned at Not on file Legal Sex Female 3:16 PM CDT Gender Identity Female 05/10/2020 1:57 PM CDT Sexual Orientation Straight 05/10/2020 1: 57 PM CDT Obstetrics History Para Term AB IAB SAB Ectopic Multiple Livin g Live Births 0 0 0 0 0 0 0 0 0 0 0 Last Filed Vital Signs Vital Sign Reading Time Taken Comments Blood Pressure 126/74 04/13/2025 10:39 AM CDT Pulse 88 02/09/2025 11:48 AM CDT Temperature 36.4 C (97.6 F) 02/09/2025 11:48 AM CDT Respiratory Rate 20 02/09/2025 11:4 8 AM CDT Oxygen Saturation 99% 02/09/2025 11: 48 AM CDT Inhaled Oxygen Concentration - - Weight 69.8 kg (153 lb 12.8 oz) 025 10:39 AM CDT Height 175.3 cm (5' 9) 04/13/2025 10:3 9 AM CDT Body Mass Index 22.71 04/13/2025 10:39 AM CDT Plan of Treatment Health Maintenance Due Date Last Done Comments Colon Cancer Screening-Colonoscopy 1970 Zoster Vaccine (1 of 2) 2021 Depression Screening 09/03/2023 09/03/2022, 08/29/2021, 05/08/2020 Influenza Vaccine (Season Ended) 2025 08/24/2002, 09/17/2001, 11/06/2000, Additional history exists Breast Cancer Screening-Mammogram 02/20/2026 02/20/2025, 10/23/2022, 05/06/2022, Additional history exists Cervical Cancer Screening 04/13/20262024, 04/28/2022, 08/02/2020 Regular Well Visit/Exam 18-64 04/13/2026 04/13/2025, 04/28/2022, 06/19/2020 DTaP/Tdap/Td Vaccine (3 - Td or Tdap) 10/29/2028 10/29/2018, 06/26/2014, 10/26/1998 Hepatitis B Screening Completed 10/08/2000, 000 Hepatitis C Screening Completed 05/09/2020 Pneumococcal vaccine <65 Aged Out No longer eligible based on patient's age to complete this topic Procedures Procedure Name Priority Date/Time Associated Diagnosis Comments THINPREP IMAGING PAP AND HPV MRNA E6/E7 REFLEX HPV 16,18/45 Routine 04/13/2025 10:56 AM CDT Encounter for gynecological examination without abnormal finding SCREENING MAMMOGRAM BILATERAL W [place] Schedule Routine, Read Routine (OP Routine) 02/20/2025 11:57 AM CDT Screening mammogram, encounter for AEROBIC AND ANAEROBIC CULTURE AND GRAM STAIN Routine 02/09/2025 12:09 PM CDT Paronychia of great toe, left IA INCISION & DRAINAGE ABSCESS SIMPLE/SINGLE Routine 02/09/2025 11:45 AM CDT Paronychia of great toe, left HEPATITIS C ANTIBODY Routine 05/09/2020 9:21 AM CDT Abdominal pain Nail fungus from Last 3 Months or Most Recently Relevant to Health Maintenance Results * ThinPrep(R) Imaging Pap and HPV mRNA E6/E7 Reflex HPV 16,18/45 (04/13/2025 10:56 AM CDT) CLINICAL INFORMATION: [facility] Comment:None given LMP [facility] Comment:NONE GIVEN Previous Pap [facility] Comment:NONE GIVEN Prev. Bx [facility] Comment:NONE GIVEN SOURCE: [facility] Comment:None given Pap, specimen adequacy [facility] Comment: Satisfactory for evaluation. Endocervical/transformation zone component present. Age and/or menstrual status not provided HPV interp [facility] Comment: Cytology Results: Negative for intraepithelial lesion or malignancy. COMMENTS [facility] Comment: This Pap test has been evaluated with computer assisted technology. [facility] Comment: PCM, CT(ASCP) CT Screening Location: [place] [address] [address] [place] [address] Comment [facility] Comment: EXPLANATORY NOTE: The Pap is a screening test for cervical cancer. It is not a diagnostic test and is subject to false negative and false positive results. It is most reliable when a satisfactory sample, regularly obtained, is submitted with relevant clinical findings and history, and when the Pap result is evaluated along with historic and current clinical information. Human papillomavirus RNA, High Risk E6/E7 Not Detected Not Detected [facility] Comment: Methodology: Director Diversity-Mediated Amplification This assay detects E6/E7 viral messenger RNA (mRNA) from 14 high-risk HPV types (16,18,31,33,35,39,45,51,52,56,58,59,66,68). Cervical sources are required for HPV testing. If a vaginal source from a patient who has had a total hysterectomy with removal of cervix was submitted, please contact the testing laboratory for alternative testing options. For additional information, please refer to http://education.ClickBus.Epigami/faq/BYV396h3 (This link if provided for information/ educational purposes only.) Swab 04/13/2025 10:5 6 AM CDT 04/14/2025 3:17 PM CDT us Isela Harding DO LAB CYTOLOGY ORDERABLES Final Result [place] [address] [address] [place] [address] [place] [address] [place] [address] * Screening Mammogram Bilateral W [place] (02/20/2025 11:57 AM CDT) Anatomical Region Laterality Modality Breast Bilateral Mammography Impressions 02/20/2025 5:07 PM CDT BI-RADS ATLAS category (overall): 1 - Negative There is no mammographic evidence of malignancy. A 1 year screening mammogram is recommended. The patient has been or will be contacted. We recommend annual screening mammography for women at average risk of breast cancer beginning at age 40, based on guidelines of the [place] [employer] (ACR Practice Parameter for the Performance of Screening and Diagnostic Mammography) and [place] [employer]. For women with and elevated risk of breast cancer, please refer to the ACR Practice Parameter for specific screening recommendations. The patient will be entered into a reminder system with a target due date of 1 year for her next screening exam. Narrative 02/20/2025 5:07 PM CDT Screening Mammogram Bilateral W [place]: 02/20/25 The study was acquired using full field digital technology and interpreted from soft copy. 2D digital mammographic views, as well as 3D digital tomosynthesis were performed in the CC and MLO projections. This study was resulted using Computer-Aided Detection (CAD). CLINICAL: Screening mammogram, encounter for. No relevant medical history has been documented for this patient. No known family history of breast cancer. COMPARISONS: 10/23/2022 Diagnostic Mammogram Bilateral [place] 05/06/2022 DIAGNOSTIC MAMMOGRAM BILATERAL W [place] 03/16/2019 SCREENING MAMMOGRAM BILATERAL [place] 03/16/2019 Breast Imaging Screening Outside Reference 03/10/2018 SCREENING MAMMOGRAM BILATERAL [place] BREAST TISSUE: The breasts are heterogeneously dense, which may obscure small masses. FINDINGS: There is a biopsy marker clip in the right breast. No suspicious masses, suspicious calcifications, or other suspicious findings are seen within either breast. There has been no suspicious change. us Self Screening Mammogram IMG MAMMO PROCEDURES Fi nal Result * (ABNORMAL) Aerobic and anaerobic culture and gram stain Abscess Toe, great, left (02/09/2025 12:09 PM CDT) Direct Specimen Exam Stain: No polymorphonuclear leukocytes seen. Few Gram Negative Bacilli Rare Gram Positive [facility] Comment:Testing performed by : [facility], [address] [place]., [address] Report Final Report: Moderate Bacteroides fragilis (.) [facility] Comment:Testing performed by : [facility], [address] [facility] [address] [facility], [place]., [address] Organism BACTEROIDES FRAGILIS [facility] Abscess (Toe, great, left) 02/09/2025 12:09 PM CDT 02/09/2025 10:07 PM CDT Narrative [facility] - 02/13/2025 3:14 PM CDT Specimen received on an ESwab. Testing performed by [facility] ([phone]) Specimens submitted from normally sterile body sites will have all bacterial morphotypes identified. Specimens that contain grossly mixed chetna and/or are from body sites that are not normally sterile will be examined for Staphylococcus aureus, Pseudomonas aeruginosa, beta-hemolytic strep, vancomycin-resistant Enterococcus, Bacteroides, Parabacteroides, Clostridium perfringens and fungus. If any of these are isolated, the organism will be reported. Current interpretive data was last revised on 2020. Rahel Casillas NP LAB MICROBIOLOGY - GENERAL ORD ERABLES Final Result [place] [address] [place] [address] * IA INCISION & DRAINAGE ABSCESS SIMPLE/SINGLE (02/09/2025 11:45 AM CDT) Narrative Rahel Casillas NP - 02/09/2025 11:45 AM CDT Rahel Casillas NP 02/09/2025 12:22 PM Incision and Drainage Performed by: Rahel Casillas NP Authorized by: Rahel Casillas NP Consent Given by: Patient Verbal consent obtained: Yes Type: Paronychia Body area: Lower extremity Location details: Left big toe Anesthesia method: No anesthesia needed. Needle gauge: 18 G Incision type: Needle used to place hole through top of nail. Complexity: Simple (Cleaned site was ChloraPrep prior) Drainage: Purulent Drainage amount: Moderate Wound treatment: Wound left open Patient tolerance: Patient tolerated the procedure well with no immediate complications us Rahel Casillas ATHLETIC EQUIPMENT CUSTODIAN IN CLINIC/BEDSIDE ORDERABLES F inal Result * Hepatitis C antibody (05/09/2020 9:21 AM CDT) Hep C Ab NON-REACTI VE NON-REACT ABDIRIZAK [facility] SIGNAL TO CUT-OFF 0.01 <1.00 [facility] Comment: HCV antibody was non-reactive. There is no laboratory evidence of HCV infection. In most cases, no further action is required. However, if recent HCV exposure is suspected, a test for HCV RNA (test code 43463) is suggested. For additional information please refer to http://education.YaKlass/faq/GBS62h7 (This link is being provided for informational/ educational purposes only.) Blood specimen (specimen) 05/09/2020 9:21 AM CDT 05/09/2020 9:24 AM CDT Narrative [facility] - 05/10/2020 11:09 AM CDT FASTING:YES FASTING: YES Angelito Loving DO LAB MICROBIOLOGY - GENER AL ORDERABLES Final Result Performing Organization Address City/State/[facility] Co de Phone Number FAD[facility] [address] [place] [address] from Last 3 Months or Most Recently Relevant to [place] [address] [facility] CLAIMS [facility]S [facility]S [facility] CLAIMS Care Teams Hair Salon Manager Relationship Specialty Start Date End Date No, Physician PCP - General 03/28/24 [place] [address] [place] [address] Consulting Physician Obstetrics and Gynecology 05/06/22
--- OUTSIDE RECORDS SUMMARY | 2025-04-25 10:21 | XMS_ITS | Referral Summary ---
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 Phone Isela Harding DO Unavailable [phone] No, Physician Primary Care Provider Encounters Date Type Department Care Team Description 04/13/2025 10:45 AM CDT Office Visit [facility] [address] [facility] [place] [address] Isela Harding, Encounter for gynecological examination without abnormal finding (Primary Dx); Pelvic and perineal pain 02/20/2025 Telephone [facility] [place] [address] [place] [address] Margaret Buck Call Back 02/20/2025 11:37 AM CDT - 02/20/2025 11:59 PM CDT Hospital Encounter [facility] [address] [place] [address] Screening mammogram, encounter for Discharge Disposition: Discharge to home or self care 02/14/2025 Orders Only [facility] at [address] [address] Rahel Casillas NP Bacteroides fragilis infection (Primary Dx) 02/13/2025 Results Follow-Up [facility] [address] [address] Ashli Rangel NP Aerobic and anaerobic culture and gram stain Abscess Toe, great, left 02/09/2025 12:09 PM CDT - 02/09/2025 11:59 PM CDT Hospital Encounter [facility] [address] [place] [address] Paronychia of great toe, left Discharge Disposition: Discharge to home or self care 02/09/2025 11:45 AM CDT Office Visit [facility] at [address] [address] Rahel Casillas NP Paronychia of great toe, left (Primary Dx) from Last 3 Months Allergies Active Allergy Reactions Criticality Noted Date [...] August 03 she had been traveling to [place] via airplane. Her main complaint at this [...] med After G.I. workup Will check lft Immunizations Immunization Administration Dates Next Due Influenza, Unspecified 09/11/2022(Deferr ed: Patient Refused),08/23/2021(Deferred: Patient Refused),08/23/2020(Deferred: Patient Refused) Tdap 10/29/2018 Social History Tobacco Use Types Packs/Day Years [...] Orientation Straight 05/10/2020 1: 57 PM CDT Last Filed Vital Signs Vital Sign Reading [...] 04/13/2025 10:39 AM CDT Plan of Treatment Not on file Procedures Procedure Name Priority Date/Time Associated Diagnosis [...] PM CDT Paronychia of great toe, left SC INCISION & DRAINAGE ABSCESS SIMPLE/SINGLE Routine 02/09/2025 11:45 AM CDT Paronychia of great toe, left HEPATITIS C ANTIBODY Routine 05/09/2020 9:21 AM CDT Abdominal pain Nail fungus from Last 3 Months or Most Recently Relevant to Health Maintenance Results * ThinPrep(R) Imaging Pap and HPV mRNA E6/E7 Reflex HPV 16,18/45 (04/13/2025 10:56 AM CDT) CLINICAL INFORMATION: [facility] Comment:None given LMP [facility]:NONE GIVEN Previous Pap [facility] Comment:NONE GIVEN Prev. Bx [facility] Comment:NONE GIVEN SOURCE: [facility] Comment:None given Pap, specimen adequacy [facility] Comment: Satisfactory for evaluation. Endocervical/transformation zone component present. Age and/or menstrual status not provided HPV interp [facility] Comment: Cytology Results: Negative for intraepithelial lesion or malignancy. COMMENTS [facility] Comment: This Pap test has been evaluated with computer assisted technology. [facility] Comment: PCM, CT(ASCP) CT Screening Location: [place] [address] [place] [address] [facility]: EXPLANATORY NOTE: The Pap is a [...] High Risk E6/E7 Not Detected Not Detected [facility] [employer] [facility] Comment: Methodology: Compressor Station Chief Engineer-Mediated Amplification This assay detects E6/E7 viral messenger RNA (mRNA) from 14 high-risk HPV types (16,18,31,33,35,39,45,51,52,56,58,59,66,68). Cervical sources are required for HPV testing. If a vaginal source from a patient who has had a total hysterectomy with removal of cervix was submitted, please contact the testing laboratory for alternative testing options. For additional information, please refer to http://education.Global Filmdemic/faq/XRH120l1 (This link if provided for information/ educational purposes only.) Swab 04/13/2025 10:5 6 AM CDT 04/14/2025 3:17 PM CDT us Isela Ojeda Meaghan RODRIGUEZ LAB CYTOLOGY ORDERABLES Final Result [facility] [address] [place] [address] [facility] [address] [place] [address] * Screening Mammogram Bilateral W [place] (02/20/2025 [...] age 41, based on guidelines of the [place] [employer] (ACR Practice Parameter for the Performance of Screening and Diagnostic Mammography) and [place] [employer]. For women [...] breast. There has been no suspicious change. Self Screening Mammogram IMG MAMMO PROCEDURES Fi nal Result * (ABNORMAL) Aerobic and anaerobic culture and gram stain Abscess Toe, great, left (02/09/2025 12:09 PM CDT) Direct Specimen Exam Stain: No polymorphonuclear leukocytes seen. Few Gram Negative Bacilli Rare Gram Positive [facility]ci Comment:Testing performed by : [facility], [address] [place]., [address] Report Final Report: Moderate Bacteroides fragilis (.) NIKOLAY Comment:Testing performed by : [facility], [address] [place]., [address] Organism BACTEROIDES FRAGILIS [facility]AY Abscess (Toe, great, left) 02/09/2025 12:09 PM CDT 02/09/2025 10:07 PM CDT Narrative NIKOLAY - 02/13/2025 3:14 PM CDT Specimen received on an ESwab. Testing performed by [facility] Microbiology Laboratory ([phone]) Specimens submitted from normally sterile body sites [...] - GENERAL ORD ERABLES Final Result NIKOLAY [address] Department [place] [address] * SC INCISION & DRAINAGE ABSCESS SIMPLE/SINGLE (02/09/2025 11:45 [...] the procedure well with no immediate complications Rahel Casillas NP IN CLINIC/BEDSIDE ORDERABLES F inal Result * Hepatitis C antibody (05/09/2020 9:21 AM CDT) Hep C Ab NON-REACTI VE NON-REACT ABDIRIZAK [facility] SIGNAL TO CUT-OFF 0.01 <1.00 [facility] Comment: HCV antibody was non-reactive. There is no laboratory evidence of HCV infection. In most cases, no further action is required. However, if recent HCV exposure is suspected, a test for HCV RNA (test code 06360) is suggested. For additional information please refer to http://education.Global Filmdemic/faq/YAW56v5 (This link is being provided for informational/ educational purposes only.) Blood specimen (specimen) 05/09/2020 9:21 AM CDT 05/09/2020 9:24 AM CDT Narrative [facility] - 05/10/2020 11:09 AM CDT FASTING:YES FASTING: YES Angelito Loving DO LAB MICROBIOLOGY - GENER AL ORDERABLES Final Result [facility] [id number] [id number] from Last 3 Months or Most Recently Relevant to Health Maintenance Insurance [facility] CLAIMS [facility] CLAIMS [facility] CLAIMS [facility] CLAIMS Care Teams Metal Filer Relationship Specialty Start Date End Date No, Physician PCP - General 03/28/24 [place] [address] [place] [address] Consulting Physician Obstetrics and Gynecology 05/06/22
== END 2025-04-25 09:55 | disposition home or self-care (01) ==
PROVIDERS: PCP Family Medicine; Visit Provider Urology
DX: N20.0 Calculus of kidney (principal)
CPT/HCPCS: 74018

== ENCOUNTER 2025-10-06 13:38 | Outpatient (CLI) | payer OTHER, SELFPAY ==
--- NOTE | ~2025-10-06 | XR_ITS ---
XR lumbar spine 2-3V Indication: lumbar back pain, NKI Comparison: None Findings: Grade 1 anterolisthesis of L3 on L4, no fracture identified. The disc heights are intact. Soft tissues unremarkable Impression: No acute abnormality. Reviewed, dictated and finalized at location P. 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
== END 2025-10-06 13:39 | disposition home or self-care (01) ==
PROVIDERS: PCP Family Medicine; Visit Provider Family Medicine
DX: M54.50 Low back pain, unspecified (principal)
CPT/HCPCS: 72100